=== PATIENT | male | born 1950 | race Two or more races ===

== ENCOUNTER 2023-02-04 12:29 | Inpatient (IN) | payer BC, MEDICARE ==
[2023-02-04] MEDS ORDERED: FLUMAZENIL 0.1 MG/ML 5 ML VIAL IVP STA (12:36)
[2023-02-04] MEDS ORDERED: NALOXONE 0.4 MG/ML 1 ML VIAL IVP STA (12:37)
[2023-02-04 12:48] LABS: ABG Oxygen Saturation 94.9 % (94-97); ABG PO2 95 mmHg (83-108); Allen Test Performed? Yes
[2023-02-04 12:50] LABS: Basophils # (A) 0.1 k/uL (0-0.2); Basophils % (A) 1 %; Eosinophils # (A) 0.1 k/uL (0-0.7); Eosinophils % (A) 1 %; HCT 42.5 % (39.0-53.0); HGB 12.5 gm/dL (13.0-17.5); Hypochromasia Marked; Lymphocytes # (A) 4.9 k/uL (1.0-4.8); Lymphocytes % (A) 36 %; MCHC 29.3 g/dL (31.0-37.0); MCV 91.9 fL (80.0-100.0); Mean Platelet Volume 8.3; Monocytes # (A) 0.7 k/uL (0-1.0); Monocytes % (A) 5 %; Neutrophils # (A) 7.4 k/uL (1.3-7.7); Neutrophils % (A) 55 %; Platelet Count 349 k/uL (150-450); RBC 4.63 m/uL (4.30-5.90); RDW 14.7 % (11.5-15.5); WBC 13.4 k/uL (3.8-10.6)
[2023-02-04 12:54] LABS: ABG PCO2 >120 mmHg (35-45); ABG PH 7.12 (7.35-7.45)
[2023-02-04 12:58] LABS: Partial Thromboplastin Time 23.6 sec (22.0-30.0); Prothrombin Time 10.9 sec (10.0-12.5)
--- NOTE | 2023-02-04 12:58 | ED ---
General Adult HPI - General Chief complaint: Altered Mental Status Stated complaint: afib Time Seen by Provider: 02/04/23 12:29 Source: patient, family, EMS, RN notes reviewed, old records reviewed Mode of arrival: EMS Limitations: no limitations - History of Present Illness Initial comments: this a 72-year-old male who presents emergency Department in respiratory distress and is unresponsive. According to the patient's son who is an oral surgeon patient was given a benzodiazepine this morning at 7:00 and had a procedure starting around 9:00 and he became more and more obtunded over the last hour and a half to the point where he was unresponsive and needed be back on the way in by EMS. Son stated the patient was not to be intubated unless his heart. He needed CPR. He was insistent upon no intubation. Patient has severe COPD and is on 16 L during the day and BiPAP at night. - Related Data Allergies Allergy/AdvReac Type Severity Reaction Status Date / Time No Known Allergies Allergy Verified 02/04/23 12:37 Review of Systems ROS Statement: Those systems with pertinent positive or pertinent negative responses have been documented in the HPI. ROS Other: All systems not noted in ROS Statement are negative. Past Medical History Past Medical History: Unable to Obtain Past Surgical History: Unable to Obtain Past Psychological History: Unable to Obtain Smoking Status: Unknown if ever smoked Past Alcohol Use History: Unable to Obtain Past Drug Use History: Unable to Obtain General Exam - General Exam Comments Initial Comments: GENERAL: Patient is well-developed and well-nourished. Patient is unresponsive ENT: Neck is soft and supple. Moist mucous membranes. EYES: The sclera were anicteric and conjunctiva were pink and moist. PULMONARY: There are no breath sounds and it did not appear patient was taking any breath on his own CARDIOVASCULAR: There is a regular rate and rhythm without any murmurs gallops or rubs. ABDOMEN: Soft and nontender with normal bowel sounds. SKIN: Skin is clear with no lesions or rashes and otherwise unremarkable. NEUROLOGIC: Patient is not alert MUSCULOSKELETAL: Unable to assess PSYCHIATRIC: Unable to assess Limitations: no limitations Course Vital Signs 02/04/23 02/04/23 02/04/23 12:32 12:37 12:40 Temperature 96.4 F L Pulse Rate 55 L Respiratory 8 L 8 L Rate Blood Pressure 125/85 O2 Sat by Pulse 88 L Oximetry Fraction of Inspired Oxygen (FIO2) 02/04/23 02/04/23 12:43 13:04 Temperature Pulse Rate 56 L Respiratory 29 H Rate Blood Pressure 117/72 O2 Sat by Pulse 97 Oximetry Fraction of 100 Inspired Oxygen (FIO2) Medical Decision Making - Medical Decision Making EKG is interpreted by myself. EKG shows a sinus bradycardia 55 bpm MI interval 238 QRS is 101 Q-T intervals 422 QTC is 410 per patient's EKG shows ST segment elevation V2 through V6 as well as lateral leads 1 and aVL. I compared to an old EKG these are not new changes Was pt. sent in by a medical professional or institution (, PA, KINESIOLOGIST, urgent care, hospital, or [place] health care facility...) When possible be specific @ -Patient was sent in by the dentist doing the procedure Did you speak to anyone other than the patient for history (EMS, parent, family, police, friend...)? What history was obtained from this source @ -Son gave all the history Did you review nursing and triage notes (agree or disagree)? Why? @ -I reviewed and agree with nursing and triage notes Were old charts reviewed (outside hosp., previous admission, EMS record, old EKG, old radiological studies, urgent care reports/EKG's, [place] health care facility records)? Report findings @ -I reviewed prior EKGs and prior radiological studies from [facility] that the son had access to Differential Diagnosis (chest pain, altered mental status, abdominal pain women, abdominal pain men, vaginal bleeding, weakness, fever, dyspnea, syncope, headache, dizziness, GI bleed, back pain, seizure, CVA, palpatations, mental health, musculoskeletal)? @ -Differential Dyspnea: Coronary syndrome, arrhythmia, tamponade, asthma, COPD, pulmonary embolism, pneumonia, pneumothorax, pulmonary effusion, anaphylaxis, diabetic ketoacidosis, flailed chest, pulmonary contusion, diaphragmatic rupture, anemia, neuromuscul ar, this is not meant to be an all-inclusive list. EKG interpreted by me (3pts min.). @ -As above X-rays interpreted by me (1pt min.). @ -X-ray shows large pleural effusion on the right with significant atelectasis as well as possible pulmonary edema CT interpreted by me (1pt min.). @ -None done U/S interpreted by me (1pt. min.). @ -None done What testing was considered but not performed or refused? (CT, X-rays, U/S, labs)? Why? @ -None What meds were considered but not given or refused? Why? @ -None Did you discuss the management of the patient with other professionals (professionals i.e. , PA, KINESIOLOGIST, lab, RT, psych nurse, high school social studies tutor, digital data analyst, teacher, community chest officer, rn case mgr)? Give summary @ -[facility] the patient I wrote admitting orders Was smoking cessation discussed for >3mins.? @ -No Was critical care preformed (if so, how long)? @ -35 minutes Were there social determinants of health that impacted care today? How? (Homelessness, low income, unemployed, alcoholism, drug addiction, transportation, low edu. Level, literacy, decrease access to med. care, penitentiary, rehab)? @ -No Was there de-escalation of care discussed even if they declined (Discuss DNR or withdrawal of care, Hospice)? DNR status @ -No What co-morbidities impacted this encounter? (DM, HTN, Smoking, COPD, CAD, Cancer, CVA, ARF, Chemo, Hep., AIDS, mental health diagnosis, sleep apnea, morbid obesity)? @ -None Was patient admitted / discharged? Hospital course, mention meds given and route, prescriptions, significant lab abnormalities, going to OR and other pertinent info. @ -Patient arrived and it did not appear he was breathing at all patient was being bagged this time. I spoke with the son said did not want the patient to be intubated unless his heart stopped and he needed CPR. Patient insisted that the patient could be associated with BiPAP because it has worked in the past. Patient was then placed on BiPAP keep were done patient was hypercapnic. Patient also has Romazicon to reverse any benzodiazepines around toward. Patient was given prophylactic antibiotics as well after the x-ray was viewed. A repeat ABG was done that showed a pCO2 had decreased recently [place] to the point where the patient was awake and saying things but not making sense at this time. [facility] admitted the patient. I spoke with Dr. Brito he agreed to come down and see the patient he saw the patient in the emergency department and wanted the patient to come up to the ICU. Undiagnosed new problem with uncertain prognosis? @ -No Drug Therapy requiring intensive monitoring for toxicity (Heparin, Nitro, Insulin, Cardizem)? @ -No Were any procedures done? @ -No Diagnosis/symptom? @ -Respiratory failure Acute, or Chronic, or Acute on Chronic? @ -Acute Uncomplicated (without systemic symptoms) or Complicated (systemic symptoms)? @ -Complicated Side effects of treatment? @ -No Exacerbation, Progression, or Severe Exacerbation? @ -No Poses a threat to life or bodily function? How? (Chest pain, [place], [place], pneumonia, PE, COPD, DKA, ARF, appy, cholecystitis, CVA, Diverticulitis, Homicidal, Suicidal, threat to staff... and all critical care pts) @ -Yes extremely the hypoxia and end organ dysfunction Diagnosis/symptom? @ -Hypercapnia Acute, or Chronic, or Acute on Chronic? @ -Acute Uncomplicated (without systemic symptoms) or Complicated (systemic symptoms)? @ -Complicated Side effects of treatment? @ -none Exacerbation, Progression, or Severe Exacerbation] @ -no Poses a threat to life or bodily function? @ -Yes - Lab Data Result diagrams: 02/04/23 12:40 02/04/23 12:40 Lab Results 02/04/23 02/04/23 02/04/23 Range/Units 12:40 12:40 12:40 WBC 13.4 H (3.8-10.6) k/uL RBC 4.63 (4.30-5.90) m/uL Hgb 12.5 L (13.0-17.5) gm/dL Hct 42.5 (39.0-53.0) % MCV 91.9 (80.0-100.0) fL MCH 27.0 (25.0-35.0) pg MCHC 29.3 L (31.0-37.0) g/dL RDW 14.7 (11.5-15.5) % Plt Count 349 (150-450) k/uL MPV 8.3 Neutrophils % 55 % Lymphocytes % 36 % Monocytes % 5 % Eosinophils % 1 % Basophils % 1 % Neutrophils # 7.4 (1.3-7.7) k/uL Lymphocytes # 4.9 H (1.0-4.8) k/uL Monocytes # 0.7 (0-1.0) k/uL Eosinophils # 0.1 (0-0.7) k/uL Basophils # 0.1 (0-0.2) k/uL Hypochromasia Marked PT 10.9 (10.0-12.5) sec INR 1.0 (<1.2) APTT 23.6 (22.0-30.0) sec Sample Site ABG pH (7.35-7.45) ABG pCO2 (35-45) mmHg ABG pO2 (83-108) mmHg ABG HCO3 (21-25) mmol/L ABG Total CO2 (19-24) mmol/L ABG O2 Saturation (94-97) % ABG Base Excess mmol/L Nuno Test FiO2 % Sodium 140 (137-145) mmol/L Potassium 5.6 H (3.5-5.1) mmol/L Chloride 92 L (98-107) mmol/L Carbon Dioxide 40 H (22-30) mmol/L Anion Gap 8 mmol/L BUN 27 H (9-20) mg/dL Creatinine 0.78 (0.66-1.25) mg/dL Est GFR (CKD-EPI)AfAm >90 (>60 ml/min/1.73 sqM) Est GFR (CKD-EPI)NonAf >90 (>60 ml/min/1.73 sqM) Glucose 192 H (74-99) mg/dL Plasma Lactic Acid Billy (0.7-2.0) mmol/L Calcium 9.4 (8.4-10.2) mg/dL Magnesium 2.0 (1.6-2.3) mg/dL Total Bilirubin 0.6 (0.2-1.3) mg/dL AST 29 (17-59) U/L ALT 16 (4-49) U/L Alkaline Phosphatase 60 (38-126) U/L Troponin I (0.000-0.034) ng/mL NT-Pro-B Natriuret Pep 744 pg/mL Total Protein 7.0 (6.3-8.2) g/dL Albumin 3.5 (3.5-5.0) g/dL 02/04/23 02/04/23 02/04/23 Range/Units 12:40 12:40 12:45 WBC (3.8-10.6) k/uL RBC (4.30-5.90) m/uL Hgb (13.0-17.5) gm/dL Hct (39.0-53.0) % MCV (80.0-100.0) fL MCH (25.0-35.0) pg MCHC (31.0-37.0) g/dL RDW (11.5-15.5) % Plt Count (150-450) k/uL MPV Neutrophils % % Lymphocytes % % Monocytes % % Eosinophils % % Basophils % % Neutrophils # (1.3-7.7) k/uL Lymphocytes # (1.0-4.8) k/uL Monocytes # (0-1.0) k/uL Eosinophils # (0-0.7) k/uL Basophils # (0-0.2) k/uL Hypochromasia PT (10.0-12.5) sec INR (<1.2) APTT (22.0-30.0) sec Sample Site RRAD ABG pH 7.12 L* (7.35-7.45) ABG pCO2 >120 H* (35-45) mmHg ABG pO2 95 (83-108) mmHg ABG HCO3 0 L* (21-25) mmol/L ABG Total CO2 0 L (19-24) mmol/L ABG O2 Saturation 94.9 (94-97) % ABG Base Excess 0.0 mmol/L Nuno Test Yes FiO2 100 % Sodium (137-145) mmol/L Potassium (3.5-5.1) mmol/L Chloride (98-107) mmol/L Carbon Dioxide (22-30) mmol/L Anion Gap mmol/L BUN (9-20) mg/dL Creatinine (0.66-1.25) mg/dL Est GFR (CKD-EPI)AfAm (>60 ml/min/1.73 sqM) Est GFR (CKD-EPI)NonAf (>60 ml/min/1.73 sqM) Glucose (74-99) mg/dL Plasma Lactic Acid Billy 0.8 (0.7-2.0) mmol/L Calcium (8.4-10.2) mg/dL Magnesium (1.6-2.3) mg/dL Total Bilirubin (0.2-1.3) mg/dL AST (17-59) U/L ALT (4-49) U/L Alkaline Phosphatase (38-126) U/L Troponin I <0.012 (0.000-0.034) ng/mL NT-Pro-B Natriuret Pep pg/mL Total Protein (6.3-8.2) g/dL Albumin (3.5-5.0) g/dL 02/04/23 Range/Units 13:47 WBC (3.8-10.6) k/uL RBC (4.30-5.90) m/uL Hgb (13.0-17.5) gm/dL Hct (39.0-53.0) % MCV (80.0-100.0) fL MCH (25.0-35.0) pg MCHC (31.0-37.0) g/dL RDW (11.5-15.5) % Plt Count (150-450) k/uL MPV Neutrophils % % Lymphocytes % % Monocytes % % Eosinophils % % Basophils % % Neutrophils # (1.3-7.7) k/uL Lymphocytes # (1.0-4.8) k/uL Monocytes # (0-1.0) k/uL Eosinophils # (0-0.7) k/uL Basophils # (0-0.2) k/uL Hypochromasia PT (10.0-12.5) sec INR (<1.2) APTT (22.0-30.0) sec Sample Site RRAD ABG pH 7.24 L (7.35-7.45) ABG pCO2 102 H* (35-45) mmHg ABG pO2 72 L (83-108) mmHg ABG HCO3 43 H* (21-25) mmol/L ABG Total CO2 47 H (19-24) mmol/L ABG O2 Saturation 92.6 L (94-97) % ABG Base Excess 15.8 mmol/L Nuno Test Yes FiO2 100 % Sodium (137-145) mmol/L Potassium (3.5-5.1) mmol/L Chloride (98-107) mmol/L Carbon Dioxide (22-30) mmol/L Anion Gap mmol/L BUN (9-20) mg/dL Creatinine (0.66-1.25) mg/dL Est GFR (CKD-EPI)AfAm (>60 ml/min/1.73 sqM) Est GFR (CKD-EPI)NonAf (>60 ml/min/1.73 sqM) Glucose (74-99) mg/dL Plasma Lactic Acid Billy (0.7-2.0) mmol/L Calcium (8.4-10.2) mg/dL Magnesium (1.6-2.3) mg/dL Total Bilirubin (0.2-1.3) mg/dL AST (17-59) U/L ALT (4-49) U/L Alkaline Phosphatase (38-126) U/L Troponin I (0.000-0.034) ng/mL NT-Pro-B Natriuret Pep pg/mL Total Protein (6.3-8.2) g/dL Albumin (3.5-5.0) g/dL Critical Care Time Critical Care Time: Yes Total Critical Care Time: 35 Disposition Clinical Impression: Respiratory failure, Hypercapnia Disposition: ADMITTED IP TO THIS HOSP Referrals: None,Stated [Primary Care Provider] - 1-2 days Time of Disposition: 14:36
[2023-02-04 12:59] LABS: Potassium 5.6 mmol/L (3.5-5.1)
[2023-02-04 13:00] LABS: ABG HCO3 0 mmol/L (21-25)
[2023-02-04 13:00] LABS: ALT 16 U/L (4-49); AST 29 U/L (17-59); African American GFR (CKD) >90 (>60 ml/min/1.73 sqM); Albumin 3.5 g/dL (3.5-5.0); Alkaline Phosphatase 60 U/L (38-126); Anion Gap 8 mmol/L; Blood Urea Nitrogen 27 mg/dL (9-20); Calcium 9.4 mg/dL (8.4-10.2); Chloride 92 mmol/L (98-107); Glucose 192 mg/dL (74-99); Non-African American GFR(CKD) >90 (>60 ml/min/1.73 sqM); Sodium 140 mmol/L (137-145); Total Bilirubin 0.6 mg/dL (0.2-1.3)
[2023-02-04 13:01] LABS: ABG TCO2 0 mmol/L (19-24)
[2023-02-04] MEDS ORDERED: cefTRIAXone IN SWFI 1,000 MG/10 ML SYRINGE IVP STA (13:02)
[2023-02-04 13:07] LABS: NT-Pro-B-Type Natriuretic Pept 744 pg/mL
--- NOTE | 2023-02-04 13:15 | XR ---
EXAMINATION TYPE: XR chest 1V portable DATE OF EXAM: 02/04/2023 12:49 PM CLINICAL INDICATION:Male, 72 years old with history of Respiratory distress; [facility] COMPARISON: None TECHNIQUE: XR chest 1V portable Frontal view of the chest. FINDINGS: Lungs/Pleura: Near complete opacification of the right thorax. Diffuse airspace opacities suggestive of pulmonary edema. No evidence for pneumothorax. No left pleural effusion definitively visualized. Pulmonary vascularity: Unremarkable. Heart/mediastinum: Cardiomediastinal silhouette is partially obscured due to overlying and adjacent o pacities. Atherosclerotic calcifications are seen in the aorta. Musculoskeletal: No acute osseous pathology. Bilateral shoulder arthroplasties appear intact. Other findings: None IMPRESSION: Suspected large right pleural effusion with associated atelectasis. There is also suspected pulmonary vascular congestion superimposed versus chronic fibrotic change. Correlate with serum BNP.
[2023-02-04 13:18] LABS: Carbon Dioxide 40 mmol/L (22-30)
[2023-02-04 13:51] LABS: ABG Base Excess 15.8 mmol/L; ABG Oxygen Saturation 92.6 % (94-97); ABG PH 7.24 (7.35-7.45); ABG PO2 72 mmHg (83-108); ABG TCO2 47 mmol/L (19-24); Allen Test Performed? Yes
[2023-02-04 13:52] LABS: ABG PCO2 102 mmHg (35-45)
[2023-02-04 13:53] LABS: ABG HCO3 43 mmol/L (21-25)
[2023-02-04] MEDS ORDERED: methylPREDNISolone SOD SUCCI 125 MG/2 ML VIAL IV STA (14:12)
[2023-02-04] MEDS ORDERED: FUROSEMIDE 10 MG/ML 4 ML VIAL IV STA ×2 (14:13→14:14)
[2023-02-04] MEDS ORDERED: BUDESONIDE 0.5 MG/2 ML NEBU INHALATION STA (14:19)
--- NOTE | 2023-02-04 14:28 | P.CRDCN ---
History of Present Illness History of present illness: HISTORY OF PRESENT ILLNESS: This is a 72-year-old male with a past medical history significant for paroxysmal atrial fibrillation with previous cardioversion and chronic hypercapnic respiratory failure requiring BiPAP at night. Patient follows with a Dr. Alvarado at [facility]. We have been asked to see the patient in consultation for ST elevation. Patient examined at the bedside in the emergency room. The patient's son is at the bedside who is an oral maxillofacial surgeon. The patient was undergoing multiple tooth extractions this morning. The son states states this morning they gave the patient an oral benzodiazepine. The son states they were about 2 and half hours into the procedure when his father became obtunded. He was brought to the hospital for further evaluation. ABGs obtained revealed pH 7.12 and CO2 greater than 120. The patient's son states the patient's baseline CO2 is around 80. He also wears a BiPAP nightly at home. The patient was placed on BiPAP as the family refused intubation. The patient is awake and talking at the time of examination. The patient is without complaints of chest pain or pressure. The patient's son states the patient does not have a history of congestive heart failure, coronary artery disease, or cardiomyopathy. * EKG reveals sinus mechanism with ST elevation in lead I, II, aVL, V3V6. Prior EKG provided by family with same ST elevations. * Chest xray suspected large right pleural effusion with associated atelectasis. There is also suspected pulmonary vascular congestion superimposed versus chronic fibrotic changes. REVIEW OF SYSTEMS: At the time of my exam: CONSTITUTIONAL: Denies fever or chills. HEENT: Denies blurred vision, vision changes, or eye pain. Denies hemoptysis CARDIOVASCULAR: Denies chest pain. Denies orthopnea. Denies PND. Denies palp itations RESPIRATORY: Reports shortness of breath. GASTROINTESTINAL: Denies abdominal pain. Denies nausea or vomiting. HEMATOLOGIC: Denies bleeding disorders. GENITOURINARY: Denies any blood in urine. SKIN: Denies pruitis. Denies rash. PHYSICAL EXAM: VITAL SIGNS: Reviewed. GENERAL: Well-developed in no acute distress. Remains on Bipap HEENT: Head is normocephalic. Pupils are equal, round. Sclerae anicteric. Mucous membranes of the mouth are moist. Neck supple. No JVD or thyromegaly LUNGS: Respirations even and unlabored. Lungs diminished to auscultation bilaterally. HEART: Regular rate and rhythm. S1 and S2 heard. ABDOMEN: Soft. Nondistended. Nontender. EXTREMITIES: Normal range of motion. No clubbing or cyanosis. Peripheral pulses intact. No lower extremity edema NEUROLOGIC: Awake and alert. Oriented x 3. ASSESSMENT: Episode of unresponsiveness while undergoing dental procedure Chronic ST elevation Acute hypercapnic respiratory failure requiring BiPAP Chronic hypercapnic respiratory failure, requiring BiPAP nightly at home Paroxysmal atrial fibrillation History of previous cardioversion History of PEA arrest with intubation, earlier this year at [place] PLAN: Resume Multaq and Metoprolol Resume Eliquis tomorrow Continue telemetry monitoring Per Dr. Castillo, patient with chronic ST elevation with no indication to undergo cardiac catheterization. Patients family wishing to discharge the patient this evening once his CO2 decreases and his mentation improves Patient may be discharged home from a cardiac standpoint this evening per Dr. Castillo Further recommendations pending patient's course Nurse practitioner note has been reviewed by physician. Signing provider agrees with the documented findings, assessment, and plan of care. Past Medical History Past Medical History: Unable to Obtain Past Surgical History: Unable to Obtain Past Psychological History: Unable to Obtain Smoking Status: Unknown if ever smoked Past Alcohol Use History: Unable to Obtain Past Drug Use History: Unable to Obtain Medications and Allergies Allergies Allergy/AdvReac Type Severity Reaction Status Date / Time No Known Allergies Allergy Verified 02/04/23 12:37 Physical Exam Vitals: Vital Signs Temp Pulse Resp BP Pulse Ox FiO2 02/04/23 13:04 100 02/04/23 12:43 56 L 29 H 117/72 97 02/04/23 12:40 96.4 F L 02/04/23 12:37 8 L 02/04/23 12:32 55 L 8 L 125/85 88 L Intake and Output 02/03/23 02/04/23 02/04/23 22:59 06:59 14:59 Other: Weight 72.575 kg Results 02/04/23 12:40 02/04/23 12:40 Cardiac Enzymes 02/04/23 02/04/23 Range/Units 12:40 12:40 AST 29 (17-59) U/L Troponin I <0.012 (0.000-0.034) ng/mL Coagulation 02/04/23 Range/Units 12:40 PT 10.9 (10.0-12.5) sec APTT 23.6 (22.0-30.0) sec CBC 02/04/23 Range/Units 12:40 WBC 13.4 H (3.8-10.6) k/uL RBC 4.63 (4.30-5.90) m/uL Hgb 12.5 L (13.0-17.5) gm/dL Hct 42.5 (39.0-53.0) % Plt Count 349 (150-450) k/uL Comprehensive Metabolic Panel 02/04/23 Range/Units 12:40 Sodium 140 (137-145) mmol/L Potassium 5.6 H (3.5-5.1) mmol/L Chloride 92 L (98-107) mmol/L Carbon Dioxide 40 H (22-30) mmol/L BUN 27 H (9-20) mg/dL Creatinine 0.78 (0.66-1.25) mg/dL Glucose 192 H (74-99) mg/dL Calcium 9.4 (8.4-10.2) mg/dL AST 29 (17-59) U/L ALT 16 (4-49) U/L Alkaline Phosphatase 60 (38-126) U/L Total Protein 7.0 (6.3-8.2) g/dL Albumin 3.5 (3.5-5.0) g/dL Current Medications Generic Name Dose Route Start Last Admin Trade Name Freq PRN Reason Stop Dose Admin Albuterol/Ipratropium 3 ml 02/04/23 20:00 Ipratropium-Albuterol 3 Ml Neb INHALATION RT-Q6H OSIRIS Ampicillin Sodium/Sulbactam 100 mls @ 200 mls/hr 02/04/23 14:17 Sodium 3 gm/ Sodium Chloride IVPB 02/04/23 14:46 ONCE STA Protocol Ampicillin Sodium/Sulbactam 100 mls @ 200 mls/hr 02/04/23 18:00 Sodium 3 gm/ Sodium Chloride IVPB Q6HR OSIRIS Protocol Ketorolac Tromethamine 15 mg 02/04/23 14:13 Ketorolac 15 Mg/Ml 1 Ml Vial IVP 02/09/23 14:13 Q6HR PRN Pain Intake and Output 02/03/23 02/04/23 02/04/23 22:59 06:59 14:59 Other: Weight 72.575 kg Patient Weight 02/05/23 06:59 Weight 72.575 kg 02/04/23 12:40 02/04/23 12:40
[2023-02-04] MEDS: AMPICILLIN-SULBACTAM 3 GM in SODIUM CHLORIDE 0.9% 100 ML IVPB STA ×2 (14:31→17:30)
[2023-02-04] MEDS: KETOROLAC 15 MG/ML 1 ML VIAL IVP PRN ×2 (14:32→23:39)
[2023-02-04] MEDS ORDERED: NALOXONE 0.4 MG/ML 1 ML VIAL IV PRN (14:36)
--- NOTE | 2023-02-04 15:06 | P.CNPUL ---
History of Present Illness Consult date: 02/04/23 Reason for consult: COPD History of present illness: I was asked to evaluate this 72 year-old male patient for acute respiratory distress. This is a male patient who lives in [facility] the patient has extensive medical problems and comorbidities most significant of which is non-small cell lung cancer/adenocarcinoma, stage IIIB. The patient was in the area with his son was Is to be a maxillofacial surgery trainee who is currently training add the [facility] [employer] [facility] [facility] [place]. The patient was undergoing a dental extraction and the procedure was being performed by the son at his friend's office. 2 hours into the procedure, the patient became progressively more obtunded, lethargic, and quite encephalopathic and he was in significant is to distress. At that point, the procedure was aborted and the patient was brought into the emergency department. The patient was being bagged by mask ventilation on Route. The patient was given Halcion at the time of the procedure. No reported aspiration. He did encounter some bleeding from the gums yet, the son mentions that there is no reported massive aspiration or aspirate thin episode. Immediately, in the emergency department, the patient was placed on a BiPAP and the patient is currently on a BiPAP pressure of 24/7 cm of water with an FiO2 of 100%. Is able to generate tidal volumes above 400. He is tachypneic. Respiratory rate is in the mid 30s to low 40s. Initially was quite obtunded and lethargic and gradually he started recovering his mentation and mental status and at this point in time the patient is opening his eyes spontaneously and following simple commands. His initial blood gas showed a pH of 7.12 with a pCO2 of more than 120 and pO2 of 95. Subsequent blood gas showed a pH of 7.23 with a pCO2 of 102 and pO2 of 71. Noted the patient usually lives in a pCO2 in the mid 80s. His maintain on oxygen somewhat between 5-8 L nasal cannula. In terms of his history, the patient has encountered the previous ARDS back in 2016. Exact cause for the ARDS at that time was not known. The patient was intubated and placed on a mechanical ventilator for prolonged period of time and ultimately he developed some post ARDS scarring in the lungs bilaterally. Subsequently, while undergoing shoulder surgery, the patient had a hospital- acquired pneumonia and the patient had to be intubated and placed on the mechanical ventilation again for prolonged period of time. For now, the patient undergone bilateral shoulder replacement. During the course of his illness, the patient was diagnosed having stage IIIB non-small cell lung cancer/adenocarcinoma. He was treated with accommodation of chemoradiation therapy. History no was up by Dr. Bautista at [facility]. The patient was treated with [place] ira based regimen and following that the patient was given a total of 2 years of immunotherapy with Keytruda. The patient apparently did very well. His follow-up CTs showed no significant metabolic activity within the mediastinum and the patient had some chronic opacity in the right upper lobe and this was attributed to radiation-related scarring. He also developed a located right-sided pleural effusion. His undergone multiple drainage procedures of the pleural fluid on the right in the pleural fluid cytology has been negative for malignancy. I was able to review his most recent CAT scan of the chest that was done on 01/18/2023 through the [facility] system. The patient has chronic bilateral fibrotic changes and there is a loculated right basilar pleural effusion. Chronic scarlike nodular opacity in the right upper lobe and there is volume loss in the right upper lobe along with some mediastinal switch to the right. No active masses or lesions. No significant mediastinal lymphadenopathy. In addition, the patient was recently hospitalized for A. fib RVR and decompensated COPD and this admission was at [facility]. The patient was not intubated during that admission. He was treated with BiPAP and he was able to avoid intubation. In terms of his atrial fibrillation, the patient was treated with a combination of beta blockers and currently is on metoprolol and multiple back. The patient is also on anticoagulation with Eliquis. In terms of his COPD, Stiolto 2 puffs once a day, Xopenex as needed and the patient prefers Xopenex over albuterol as albuterol causes significant tachycardia. The patient has been also maintained on a prednisone dose of 10 mg on a daily basis. He is known to have hypothyroidism maintain on levothyroxine 50 g by mouth daily. Is also maintained on tamsulosin for BPH and this medication was discontinued as it was causing some degree of hypotension. Currently is on no immunotherapy. Recurrent left-sided WBC count 15.4, hemoglobin is 12.7 and a platelet count of 349. Sodium is at 140, potassium is 5.6, BUN is 27 with a creatinine 0.7. Troponins are negative. ProBNP level is 744. Chest x-ray showed a loculated right basilar pleural effusion. Volume loss on the right. Chronic fibrotic changes bilaterally with chronic interstitial infiltrates. This superimposed interstitial edema/pulmonary vessel congestion/pulmonary edema cannot be completely ruled out Note that the patient was taken off his anticoagulants for the dental procedure. No previous history of DVT or pulmonary embolism. Minimal amount of bleeding from his gum due to his recent dental extraction. Review of Systems ROS unobtainable: due to mental status Past Medical History Past Medical History: Atrial Fibrillation, Cancer (Adenocarcinoma of the lung stage III B), COPD, Prostate Disorder Past Surgical History: Unable to Obtain, Orthopedic Surgery (Bilateral shoulder replacements) Past Psychological History: Unable to Obtain Smoking Status: Former smoker, Unknown if ever smoked Past Alcohol Use History: Unable to Obtain Past Drug Use History: Unable to Obtain Medications and Allergies Allergies Allergy/AdvReac Type Severity Reaction Status Date / Time No Known Allergies Allergy Verified 02/04/23 12:37 Physical Exam Vitals: Vital Signs Temp Pulse Resp BP Pulse Ox FiO2 02/04/23 13:04 100 02/04/23 12:43 56 L 29 H 117/72 97 02/04/23 12:40 96.4 F L 02/04/23 12:37 8 L 02/04/23 12:32 55 L 8 L 125/85 88 L Intake and Output 02/03/23 02/04/23 02/04/23 22:59 06:59 14:59 Other: Weight 72.575 kg Gen. appearance, the patient is quite apprehensive, anxious, and moderate degree of respiratory distress. He is using some Excedrin with her breathing while being on a BiPAP at a pressure of 24/7 cm of water with an FiO2 of 100%. Head exam was generally normal. There was no scleral icterus or corneal arcus. Mucous membranes were moist. Neck was supple and without jugular venous distension, thyromegaly, or carotid bruits. Carotids were easily palpable bilaterally. There was no adenopathy. The patient has dental extraction and signs of postsurgical intervention on his gums both in the upper and lower jaw. No active bleeding at this point in time. Lungs sounds are markedly diminished bilaterally. There is diffuse expiratory wheezes throughout the lung [place]. Crackles in the mid and lower lung field bilaterally. Air entry is diminished in the right compared to the left. Cardiac exam revealed the PMI to be normally situated and sized. The rhythm was regular and no extrasystoles were noted during several minutes of auscultation. The first and second heart sounds were normal and physiologic splitting of the second heart sound was noted. There were no murmurs, rubs, clicks, or gallops. Abdominal exam revealed normal bowel sounds. The abdomen was soft, non-tender, and without masses, organomegaly, or appreciable enlargement of the abdominal aorta. Examination of the extremities revealed easily palpable radial, femoral and pedal pulses. There was no cyanosis, clubbing or edema. Examination of the skin revealed no evidence of significant rashes, suspicious appearing nevi or other concerning lesions. Neurologically the patient was very much obtunded at time of admission, currently arousable and following some simple commands. Family is at the bedside. Results - Laboratory Findings CBC and BMP: 02/04/23 12:40 02/04/23 12:40 ABG ABG pH 7.24 (7.35-7.45) L 02/04/23 13:47 ABG pCO2 102 mmHg (35-45) H* 02/04/23 13:47 ABG pO2 72 mmHg (83-108) L 02/04/23 13:47 ABG O2 Saturation 92.6 % (94-97) L 02/04/23 13:47 PT/INR, D-dimer PT 10.9 sec (10.0-12.5) 02/04/23 12:40 INR 1.0 (<1.2) 02/04/23 12:40 Abnormal lab findings: Abnormal Labs 02/04/23 02/04/23 02/04/23 12:40 12:40 12:45 WBC 13.4 H Hgb 12.5 L MCHC 29.3 L Lymphocytes # 4.9 H ABG pH 7.12 L* ABG pCO2 >120 H* ABG pO2 ABG HCO3 0 L* ABG Total CO2 0 L ABG O2 Saturation Potassium 5.6 H Chloride 92 L Carbon Dioxide 40 H BUN 27 H Glucose 192 H 02/04/23 13:47 WBC Hgb MCHC Lymphocytes # ABG pH 7.24 L ABG pCO2 102 H* ABG pO2 72 L ABG HCO3 43 H* ABG Total CO2 47 H ABG O2 Saturation 92.6 L Potassium Chloride Carbon Dioxide BUN Glucose - Diagnostic Findings Chest x-ray: image reviewed Assessment and Plan Plan: Acute on chronic hypoxic/hypercapnic respiratory failure, likely due to COPD exacerbation. Underlying aspiration pneumonia/pulmonary edema/interstitial edema cannot be completely ruled out. The patient is currently on a BiPAP at a pressure of 24/7 with an FiO2 of 100%. Follow-up blood gases showed improvement in the acid-base status Altered mental status secondary to CO2 narcosis due to acute on top of chronic hypercapnic respiratory failure, gradually improving Advanced oxygen-dependent COPD and steroid dependent COPD, maintain oxygen at 5 L at baseline, maintained on oral prednisone at baseline. The patient also has a AVAPS machine at home, encouraged ventilator which is set at a time. Tidal volume of 350 mL. 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 fib, current rhythm is sinus and the patient has limited on a combination of multi-, metoprolol and anticoagulation with Eliquis Previous history of hospital-acquired pneumonia requiring intubation mechanical ventilation Previous history of ARDS requiring intubation mechanical ventilation Previous hospitalization for A. fib RVR, back in July 2022. Recent dental extraction done locally in a dental office. The son is a maxi llofacial surgeon and he was the one who was performing the procedure Hypertension BPH Hypothyroidism Plan The patient is critically ill. The patient's respiratory status is very borderline at this point in time. I elected discussion with the family at the bedside. We decided not to intubate the patient. We decided to proceed with BiPAP therapy to optimize his respiratory status knowing that this intervention has been utilizing the past with success. As such, we will going continue the BiPAP treatment for now. There has been some limited improvement with Estrace acidosis based on the follow blood gases. Start the patient on DuoNeb neb blotchiness 4 times a day Continue budesonide updrafts twice a day IV Solu Medrol 60 mg every 6 hours Lasix 40 mg IV push given in emergency department We'll cover the patient with IV Unasyn We'll already anticoagulation for 24 hours and restart adequate as of tomorrow Give Toradol 15 mg every 6 hours for pain control as the patient is having pain in his gums. Would avoid narcotic medications due to his respiratory status IV Protonix Heparin subcu for DVT prophylaxis Resume thyroid medications, the patient is on Synthroid Resume Multaq We will hold beta blockers for now and monitor the heart rate The patient will be admitted to the intensive care unit and will continue to follow and make further recommendations based on his progress. This evaluation was done in more than one hour. The patient was seen in the emergency department. Condition is critical. High risk for requiring intubation mechanical ventilation. Time with Patient: Greater than 30
--- NOTE | 2023-02-04 16:00 | XR ---
EXAMINATION TYPE: XR chest 1V DATE OF EXAM: 02/04/2023 3:55 PM CLINICAL INDICATION:Male, 72 years old with history of copd; [facility] COMPARISON: Chest radiographs from same day TECHNIQUE: XR chest 1V Frontal view of the chest. FINDINGS: Lungs/Pleura: Ariella of the bilateral costophrenic angles compatible with pleural effusions with assoc iated atelectasis. There is no evidence of focal consolidation or pneumothorax. Pulmonary vascularity: Unremarkable. Heart/mediastinum: Cardiomediastinal silhouette is enlarged and stable. Musculoskeletal: No acute osseous pathology. Bilateral shoulder arthroplasty changes with hardware in tact. IMPRESSION: Improved aeration of the right lung with persistent multifocal airspace opacities. No evidence for pn eumothorax. Correlate for serum BNP for congestive heart failure.
[2023-02-04 17:22] LABS: Glucose,Whole Blood 111 mg/dL (70-110)
[2023-02-04 17:39] LABS: ABG Base Excess 15.2 mmol/L; ABG Oxygen Saturation 99.1 % (94-97); ABG PH 7.28 (7.35-7.45); ABG PO2 200 mmHg (83-108); ABG TCO2 45 mmol/L (19-24); Allen Test Performed? Yes
[2023-02-04 17:42] LABS: ABG HCO3 42 mmol/L (21-25); ABG PCO2 90 mmHg (35-45)
[2023-02-04] MEDS ORDERED: SODIUM CHLORIDE 0.9% 500 ML 500 ML IV ONE ×2 (17:42→22:59)
[2023-02-04] MEDS: HEPARIN SODIUM,PORCINE 5,000 UNIT/ML 1 ML VIAL SQ SCH ×2 (17:54→23:38)
[2023-02-04] MEDS: methylPREDNISolone SOD SUCCI 125 MG/2 ML VIAL IV SCH ×2 (17:54→23:38)
[2023-02-04] MEDS: SODIUM CHLORIDE 0.9% 1,000 ML IV SCH (19:38)
[2023-02-04] MEDS: DRONEDARONE 400 MG TAB PO SCH ×2 (19:38→20:15)
[2023-02-04] MEDS: AMPICILLIN-SULBACTAM 3 GM in SODIUM CHLORIDE 0.9% 100 ML IVPB SCH (20:15)
[2023-02-04 20:57] LABS: ABG Base Excess 14.2 mmol/L; ABG Oxygen Saturation 96.7 % (94-97); ABG PH 7.34 (7.35-7.45); ABG PO2 90 mmHg (83-108); ABG TCO2 42 mmol/L (19-24); Allen Test Performed? Yes
[2023-02-04 20:59] LABS: ABG HCO3 40 mmol/L (21-25); ABG PCO2 74 mmHg (35-45)
[2023-02-04] MEDS: IPRATROPIUM-ALBUTEROL 3 ML NEB INHALATION SCH (21:01)
[2023-02-04] MEDS: METOPROLOL TARTRATE 25 MG TAB PO SCH (21:33)
[2023-02-04] MEDS ORDERED: METOPROLOL SUCCINATE (ER) 25 MG TAB.ER.24H PO STA (22:10)
--- NOTE | 2023-02-04 22:17 | P.HPIM ---
History of Present Illness This is a pleasant 72 years old male with multiple medical problems include Atrial Fibrillation, Cancer (Adenocarcinoma of the lung stage III B), COPD, BPH Of worsening dyspnea. Today he wants to his oral surgeon which is a family member and his son for tooth extraction and he received benzodiazepine, this is followed by worsening of his respiratory status is significantly and now he presents with respiratory distress. He was converted to keep neck and tachycardic and hypotensive. Family discussed the case with pulmonary team and decided not to intubate the patient treated with BiPAP Present that patient cannot provide information Bedside WBCs 13.4 Patient has initial chest x-ray repeat chest x-ray showing improvement ir rigation with multifocal infiltrate Normal sinus rhythm at 66 with a repolarization which is chronic Review of Systems ROS unobtainable: due to mental status Past Medical History Past Medical History: Atrial Fibrillation, Cancer (Adenocarcinoma of the lung stage III B), COPD, Prostate Disorder Past Surgical History: Unable to Obtain, Orthopedic Surgery (Bilateral shoulder replacements) Past Psychological History: Unable to Obtain Smoking Status: Former smoker, Unknown if ever smoked Past Alcohol Use History: Unable to Obtain Past Drug Use History: Unable to Obtain Medications and Allergies Home Medications Medication Instructions Recorded Confirmed Type Apixaban [Eliquis] 5 mg PO BID 02/04/23 02/04/23 History Dronedarone HCl [Multaq] 400 mg PO BID 02/04/23 02/04/23 History Furosemide [Lasix] 20 mg PO DAILY PRN 02/04/23 02/04/23 History Megestrol [Megace] 40 mg PO BID 02/04/23 02/04/23 History Metoprolol Succinate [Toprol XL] 75 mg PO BID 02/04/23 02/04/23 History Allergies Allergy/AdvReac Type Severity Reaction Status Date / Time No Known Allergies Allergy Verified 02/04/23 12:37 Physical Exam Vitals: Vital Signs Temp Pulse Resp BP Pulse Ox FiO2 02/04/23 16:00 100 02/04/23 15:37 57 L 34 H 109/61 98 02/04/23 13:04 100 02/04/23 12:43 56 L 29 H 117/72 97 02/04/23 12:40 96.4 F L 02/04/23 12:37 8 L 02/04/23 12:32 55 L 8 L 125/85 88 L Intake and Output 02/04/23 02/04/23 02/04/23 06:59 14:59 22:59 Other: Weight 72.575 kg -GENERAL: The patient is obtuneded, while on bipap machine, in sever acute resp distress. Well developed, well nourished. -HEENT: Pupils are round and equally reacting to light. EOMI. No scleral icterus. No conjunctival pallor. Normocephalic, atraumatic. No pharyngeal erythema. No thyromegaly. Mildly bleeding gum which is stopped bleeding now CARDIOVASCULAR: S1 and S2 present. No murmurs, rubs, or gallops. -PULMONARY: bilateral wheezing and decreased air entry on both sides ABDOMEN: Soft, nontender, nondistended, normoactive bowel sounds. No palpable organomegaly. MUSCULOSKELETAL: No joint swelling or deformity. EXTREMITIES: No cyanosis, clubbing, or pedal edema. NEUROLOGICAL: Gross neurological examination did not reveal any focal deficits. SKIN: No rashes. no petechiae. Results CBC & Chem 7: 02/04/23 12:40 02/04/23 12:40 Labs: Abnormal Lab Results - Last 24 Hours (Table) 02/04/23 02/04/23 02/04/23 Range/Units 12:40 12:40 12:45 WBC 13.4 H (3.8-10.6) k/uL Hgb 12.5 L (13.0-17.5) gm/dL MCHC 29.3 L (31.0-37.0) g/dL Lymphocytes # 4.9 H (1.0-4.8) k/uL ABG pH 7.12 L* (7.35-7.45) ABG pCO2 >120 H* (35-45) mmHg ABG pO2 (83-108) mmHg ABG HCO3 0 L* (21-25) mmol/L ABG Total CO2 0 L (19-24) mmol/L ABG O2 Saturation (94-97) % Potassium 5.6 H (3.5-5.1) mmol/L Chloride 92 L (98-107) mmol/L Carbon Dioxide 40 H (22-30) mmol/L BUN 27 H (9-20) mg/dL Glucose 192 H (74-99) mg/dL 02/04/23 Range/Units 13:47 WBC (3.8-10.6) k/uL Hgb (13.0-17.5) gm/dL MCHC (31.0-37.0) g/dL Lymphocytes # (1.0-4.8) k/uL ABG pH 7.24 L (7.35-7.45) ABG pCO2 102 H* (35-45) mmHg ABG pO2 72 L (83-108) mmHg ABG HCO3 43 H* (21-25) mmol/L ABG Total CO2 47 H (19-24) mmol/L ABG O2 Saturation 92.6 L (94-97) % Potassium (3.5-5.1) mmol/L Chloride (98-107) mmol/L Carbon Dioxide (22-30) mmol/L BUN (9-20) mg/dL Glucose (74-99) mg/dL Assessment and Plan Assessment: Respiratory failure Acute COPD exacerbation Cannot rule out postobstructive pneumonia Acute hypoxic hypercapnic respiratory failure Acute respiratory and metabolic acidosis Metabolic encephalopathy Chronic atrial fibrillation on blood thinner Eliquis Adenocarcinoma of the lung stage III History of benign prostatic hypertrophy Plan: New with Unasyn Continue with IV Solu-Medrol Continue with Unasyn Patient is an normal saline 75 mL/h by tube knitter Continue with Eliquis cardiology and pulmonary consult Continue with BiPAP, no intubation per family discussion with the pulmonary team Labs and medication were reviewed.. Continue same treatment. Continue with symptomatic treatment. Resume home medication. Monitor labs and vitals. DVT and GI prophylaxis. Further recommendations as per clinical course of the patient DVT prophylaxis: Eliquis GI Prophylaxis: Ppi Prognosis is guarded
[2023-02-04] MEDS ORDERED: METOPROLOL TARTRATE 25 MG TAB PO STA (22:22)
[2023-02-04] MEDS ORDERED: DILTIAZEM DRIP BOLUS FROM BAG 1 MG SOLN IV ONE (22:59)
[2023-02-04] MEDS: DILTIAZEM 125 MG in SODIUM CHLORIDE 0.9% 100 ML IV SCH (23:18)
[2023-02-04] MEDS: PHENYLEPHRINE 40 MG in SODIUM CHLORIDE 0.9% 250 ML IV SCH (23:44)
[2023-02-05] MEDS: IPRATROPIUM-ALBUTEROL 3 ML NEB INHALATION SCH ×4 (01:17→19:55)
--- NOTE | 2023-02-05 01:34 | XR ---
EXAM: XR Chest, 1 View CLINICAL HISTORY: ITS.REASON XR Reason: r/o aspiration TECHNIQUE: Frontal view of the chest. COMPARISON: 02/04/2023 IMPRESSION: Diffuse interstitial opacities. Large right pleural effusion. Overall the lung opacities have mildly improved from prior
[2023-02-05] MEDS: NOREPINEPHRINE 4 MG in SODIUM CHLORIDE 0.9% 250 ML IV SCH ×2 (02:08→09:52)
[2023-02-05] MEDS: AMPICILLIN-SULBACTAM 3 GM in SODIUM CHLORIDE 0.9% 100 ML IVPB SCH ×4 (02:18→20:22)
[2023-02-05] MEDS ORDERED: guaiFENesin 600 MG TABLET.ER PO PRN (03:28)
[2023-02-05 04:42] LABS: Basophils % (A) 0 %; Eosinophils % (A) 0 %; HCT 35.6 % (39.0-53.0); HGB 10.6 gm/dL (13.0-17.5); Hypochromasia Marked; Lymphocytes % (A) 7 %; MCH 26.8 pg (25.0-35.0); MCHC 29.9 g/dL (31.0-37.0); MCV 89.7 fL (80.0-100.0); Mean Platelet Volume 8.4; Monocytes # (A) 0.3 k/uL (0-1.0); Monocytes % (A) 2 %; Neutrophils # (A) 13.1 k/uL (1.3-7.7); Neutrophils % (A) 91 %; Platelet Count 326 k/uL (150-450); RBC 3.97 m/uL (4.30-5.90); RDW 14.9 % (11.5-15.5); WBC 14.4 k/uL (3.8-10.6)
[2023-02-05 04:55] LABS: African American GFR (CKD) >90 (>60 ml/min/1.73 sqM); Anion Gap 4 mmol/L; Blood Urea Nitrogen 31 mg/dL (9-20); Calcium 8.6 mg/dL (8.4-10.2); Carbon Dioxide 38 mmol/L (22-30); Chloride 97 mmol/L (98-107); Glucose 144 mg/dL (74-99); Magnesium 1.7 mg/dL (1.6-2.3); Non-African American GFR(CKD) 88 (>60 ml/min/1.73 sqM); Potassium 4.7 mmol/L (3.5-5.1); Sodium 139 mmol/L (137-145)
[2023-02-05] MEDS ORDERED: Magnesium Replacement Protocol 1 EACH MISC MISCELLANE PRN (05:04)
[2023-02-05] MEDS ORDERED: MAGNESIUM SULFATE-D5W PMX 1 GM in DEXTROSE/WATER 1 100ML.BAG IVPB ONE (05:04)
[2023-02-05] MEDS: methylPREDNISolone SOD SUCCI 125 MG/2 ML VIAL IV SCH ×4 (06:03→23:34)
[2023-02-05] MEDS: DRONEDARONE 400 MG TAB PO SCH ×2 (06:38→17:20)
[2023-02-05] MEDS: KETOROLAC 15 MG/ML 1 ML VIAL IVP PRN (06:52)
[2023-02-05] MEDS: SODIUM CHLORIDE 0.9% 1,000 ML IV SCH (07:42)
--- NOTE | 2023-02-05 08:04 | P.PN ---
Subjective Progress Note Date: 02/05/23 I was asked to evaluate this 72 year-old male patient for acute respiratory distress. This is a male patient who lives in [facility] the patient has extensive medical problems and comorbidities most significant of which is non-small cell lung cancer/adenocarcinoma, stage IIIB. The patient was in the area with his son was Is to be a maxillofacial surgery trainee who is currently training add the [facility] [place] The patient was undergoing a dental extraction and the procedure was being performed by the son at his friend's office. 2 hours into the procedure, the patient became progressively more obtunded, lethargic, and quite encephalopathic and he was in significant is to distress. At that point, the procedure was aborted and the patient was brought into the emergency department. The patient was being bagged by mask ventilation on Route. The patient was given Halcion at the time of the procedure. No reported aspiration. He did encounter some bleeding from the gums yet, the son mentions that there is no reported massive aspiration or aspirate thin episode. Immediately, in the emergency department, the patient was placed on a BiPAP and the patient is currently on a BiPAP pressure of 24/7 cm of water with an FiO2 of 100%. Is able to generate tidal volumes above 400. He is tachypneic. Respiratory rate is in the mid 30s to low 40s. Initially was quite obtunded and lethargic and gradually he started recovering his mentation and mental status and at this point in time the patient is opening his eyes spontaneously and following simple commands. His initial blood gas showed a pH of 7.12 with a pCO2 of more than 120 and pO2 of 95. Subsequent blood gas showed a pH of 7.23 with a pCO2 of 102 and pO2 of 71. Noted the patient usually lives in a pCO2 in the mid 80s. His maintain on oxygen somewhat between 5-8 L nasal cannula. In terms of his history, the patient has encountered the previous ARDS back in 2016. Exact cause for the ARDS at that time was not known. The patient was intubated and placed on a mechanical ventilator for prolonged period of time and ultimately he developed some post ARDS scarring in the lungs bilaterally. Subsequently, while undergoing shoulder surgery, the patient had a hospital- acquired pneumonia and the patient had to be intubated and placed on the mechanical ventilation again for prolonged period of time. For now, the patient undergone bilateral shoulder replacement. During the course of his illness, the patient was diagnosed having stage IIIB non-small cell lung cancer/adenocarcinoma. He was treated with accommodation of chemoradiation therapy. History no was up by Dr. Bautista at [facility]. The patient was treated with [place] based regimen and following that the patient was given a total of 2 years of immunotherapy with Keytruda. The patient apparently did very well. His follow-up CTs showed no significant metabolic activity within the mediastinum and the patient had some chronic opacity in the right upper lobe and this was attributed to radiation-related scarring. He also developed a located right-sided pleural effusion. His undergone multiple drainage procedures of the pleural fluid on the right in the pleural fluid cytology has been negative for malignancy. I was able to review his most recent CAT scan of the chest that was done on 01/18/2023 through the [facility] system. The patient has chronic bilateral fibrotic changes and there is a loculated right basilar pleural effusion. Chronic scarlike nodular opacity in the right upper lobe and there is volume loss in the right upper lobe along with some mediastinal switch to the right. No active masses or lesions. No significant mediastinal lymphadenopathy. In addition, the patient was recently hospitalized for A. fib RVR and decompensated COPD and this admission was at [facility]. The patient was not intubated during that admission. He was treated with BiPAP and he was able to avoid intubation. In terms of his atrial fibrillation, the patient was treated with a combination of beta blockers and currently is on metoprolol and multiple back. The patient is also on anticoagulation with Eliquis. In terms of his COPD, Stiolto 2 puffs once a day, Xopenex as needed and the patient prefers Xopenex over albuterol as albuterol causes significant tachycardia. The patient has been also maintained on a prednisone dose of 10 mg on a daily basis. He is known to have hypothyroidism maintain on levothyroxine 50 g by mouth daily. Is also maintained on tamsulosin for BPH and this medication was discontinued as it was causing some degree of hypotension. Currently is on no immunotherapy. Recurrent left-sided WBC count 15.4, hemoglobin is 12.7 and a platelet count of 349. Sodium is at 140, potassium is 5.6, BUN is 27 with a creatinine 0.7. Troponins are negative. ProBNP level is 744. Chest x-ray showed a loculated right basilar pleural effusion. Volume loss on the right. Chronic fibrotic changes bilaterally with chronic interstitial infiltrates. This superimposed interstitial edema/pulmonary vessel congestion/pulmonary edema cannot be completely ruled out Note that the patient was taken off his anticoagulants for the dental procedure. No previous history of DVT or pulmonary embolism. Minimal amount of bleeding from his gum due to his recent dental extraction. 02/05/2023, the patient remains on a BiPAP. He was on BiPAP throughout the night. He was gradually improving and his mental status was gradually recovering as the patient's blood gas shows improvement in his hypercapnia. This morning, he is on a BiPAP at a pressure of 24/7 cm of water and FiO2 of 60%. Blood gas shows a pH of 7.34 with episodes of 74 is awake and alert and communicating. Unfortunately, overnight, the patient went into atrial flutter with rapid ventricular response. His current heart rate is 45. He was given Cardizem drip which resulted in significant hypotension. Cardizem drip is currently discontinued. The patient is currently on norepinephrine setting at 0.1 mcg/kg/m to maintain a mean arterial pressure above 60. His cardiac rhythm is atrial flutter at the rate of 145. The risk was at 14.4 with a hemoglobin 10.6 and a platelet count of 326. Sodium levels of 139, BUN is at 31 with a creatinine of 0.8. He was restarted back on his anticoagulation and he is currently on Eliquis 5 mg by mouth twice a day. He is on DuoNeb neb treatments and also on IV Solu-Medrol. IV fluids are running at 75 mL an hour. Noted the patient is also on metoprolol 75 mg by mouth twice a day. He was taken multaq on an outpatient basis. Cardiology has been consulted. He remains on IV Unasyn as an empiric antibiotic coverage. A repeat chest x-ray was done today. It shows a stable right-sided pleural effusion. Chronic right apical scarring and chronic interstitial infiltrates bilaterally are again seen. The patient is quite tachypneic breathing in the mid 30s. FiO2 has been weaned down to 50% and his pulse ox remained above 90%. Objective - Vital Signs Vital signs: Vital Signs Temp 97.6 F 02/05/23 00:00 Pulse 144 H 02/05/23 07:00 Resp 39 H 02/05/23 07:00 BP 86/68 02/05/23 00:30 Pulse Ox 99 02/05/23 07:00 FiO2 50 02/05/23 07:00 Intake & Output 02/04/23 02/05/23 02/05/23 18:59 06:59 18:59 Intake Total 575 1870.231 97.259 Output Total 775 615 30 Balance -200 1255.231 67.259 Weight 72.575 kg 68.1 kg Intake: IV 575 1600 75 Ampicillin-Sulbactam 3 gm 200 In Sodium Chloride 0.9% 100 ml @ 200 mls/hr IVPB Q6H [facility] Rx#:[id number] Sodium Chloride 0.9% 1, 75 900 75 000 ml @ 75 mls/hr IV . [id number] [facility] Rx#:[id number] Sodium Chloride 0.9% 500 500 ml 500 ml @ 999 mls/hr IV .Q31M [facility] Rx#:[id number] Sodium Chloride 0.9% 500 500 ml 500 ml @ 999 mls/hr IV .Q31M [facility] Rx#:[id number] Intake, IV Titration 270.231 22.259 Amount Diltiazem 125 mg In 17.5 Sodium Chloride 0.9% 100 ml @ 10 MG/HR 10 mls/hr IV .[id number] [facility] Rx#: [id number] Norepinephrine 4 mg In 157.841 22.259 Sodium Chloride 0.9% 250 ml @ 0.03 MCG/KG/MIN 8. 295 mls/hr IV .Q24H [facility] Rx#:[id number] Phenylephrine 40 mg In 94.890 Sodium Chloride 0.9% 250 ml @ 1 MCG/KG/MIN 27.651 mls/hr IV .Q9H12M [facility] Rx# :[id number] Output: Urine 775 615 30 Other: Voiding Method Indwelling Catheter ABP, PAP, CO, CI - Last Documented Arterial Blood Pressure 102/68 - Exam Gen. appearance, the patient is a mild degree of respiratory distress. He is using some accessory muscles of breathing. However, I was told by the family that this is baseline. He remains on a BiPAP at a pressure of 24/7 cm of water. Affect is weaned down to 50%. Awake and alert and communicating. Head exam was generally normal. There was no scleral icterus or corneal arcus. Mucous membranes were moist. Neck was supple and without jugular venous distension, thyromegaly, or carotid bruits. Carotids were easily palpable bilaterally. There was no adenopathy. The patient has dental extraction and signs of postsurgical intervention on his gums both in the upper and lower jaw. No active bleeding at this point in time. Lungs sounds are markedly diminished bilaterally. There is diffuse expiratory wheezes throughout the lung [place]. Crackles in the mid and lower lung field bilaterally. Air entry is diminished in the right compared to the left. Cardiac exam revealed the PMI to be normally situated and sized. The rhythm was regular and no extrasystoles were noted during several minutes of auscultation. The first and second heart sounds were normal and physiologic splitting of the second heart sound was noted. There were no murmurs, rubs, clicks, or gallops. Abdominal exam revealed normal bowel sounds. The abdomen was soft, non-tender, and without masses, organomegaly, or appreciable enlargement of the abdominal aorta. Examination of the extremities revealed easily palpable radial, femoral and pedal pulses. There was no cyanosis, clubbing or edema. Examination of the skin revealed no evidence of significant rashes, suspicious appearing nevi or other concerning lesions. Neurologically the patient is awake and alert. - Labs CBC & Chem 7: 02/05/23 04:05 02/05/23 04:05 Labs: Abnormal Lab Results - Last 24 Hours (Table) 02/04/23 02/04/23 02/04/23 Range/Units 12:40 12:40 12:45 WBC 13.4 H (3.8-10.6) k/uL RBC (4.30-5.90) m/uL Hgb 12.5 L (13.0-17.5) gm/dL Hct (39.0-53.0) % MCHC 29.3 L (31.0-37.0) g/dL Neutrophils # (1.3-7.7) k/uL Lymphocytes # 4.9 H (1.0-4.8) k/uL ABG pH 7.12 L* (7.35-7.45) ABG pCO2 >120 H* (35-45) mmHg ABG pO2 (83-108) mmHg ABG HCO3 0 L* (21-25) mmol/L ABG Total CO2 0 L (19-24) mmol/L ABG O2 Saturation (94-97) % Potassium 5.6 H (3.5-5.1) mmol/L Chloride 92 L (98-107) mmol/L Carbon Dioxide 40 H (22-30) mmol/L BUN 27 H (9-20) mg/dL Glucose 192 H (74-99) mg/dL POC Glucose (mg/dL) (70-110) mg/dL 02/04/23 02/04/23 02/04/23 Range/Units 13:47 17:20 17:37 WBC (3.8-10.6) k/uL RBC (4.30-5.90) m/uL Hgb (13.0-17.5) gm/dL Hct (39.0-53.0) % MCHC (31.0-37.0) g/dL Neutrophils # (1.3-7.7) k/uL Lymphocytes # (1.0-4.8) k/uL ABG pH 7.24 L 7.28 L (7.35-7.45) ABG pCO2 102 H* 90 H* (35-45) mmHg ABG pO2 72 L 200 H (83-108) mmHg ABG HCO3 43 H* 42 H* (21-25) mmol/L ABG Total CO2 47 H 45 H (19-24) mmol/L ABG O2 Saturation 92.6 L 99.1 H (94-97) % Potassium (3.5-5.1) mmol/L Chloride (98-107) mmol/L Carbon Dioxide (22-30) mmol/L BUN (9-20) mg/dL Glucose (74-99) mg/dL POC Glucose (mg/dL) 111 H (70-110) mg/dL 02/04/23 02/05/23 02/05/23 Range/Units 20:33 04:05 04:05 WBC 14.4 H (3.8-10.6) k/uL RBC 3.97 L (4.30-5.90) m/uL Hgb 10.6 L (13.0-17.5) gm/dL Hct 35.6 L (39.0-53.0) % MCHC 29.9 L (31.0-37.0) g/dL Neutrophils # 13.1 H (1.3-7.7) k/uL Lymphocytes # (1.0-4.8) k/uL ABG pH 7.34 L (7.35-7.45) ABG pCO2 74 H* (35-45) mmHg ABG pO2 (83-108) mmHg ABG HCO3 40 H* (21-25) mmol/L ABG Total CO2 42 H (19-24) mmol/L ABG O2 Saturation (94-97) % Potassium (3.5-5.1) mmol/L Chloride 97 L (98-107) mmol/L Carbon Dioxide 38 H (22-30) mmol/L BUN 31 H (9-20) mg/dL Glucose 144 H (74-99) mg/dL POC Glucose (mg/dL) (70-110) mg/dL Assessment and Plan Plan: Acute on chronic hypoxic/hypercapnic respiratory failure, likely due to COPD exacerbation. Underlying aspiration pneumonia/pulmonary edema/interstitial edema cannot be completely ruled out. The patient is currently on a BiPAP at a pressure of 24/7 with an FiO2 of 50%. Follow-up blood gases showed improvement in the acid-base status. Chest x-ray shows chronic interstitial changes/fibrosis with right apical scarring and a stable right-sided pleural effusion. Altered mental status secondary to CO2 narcosis due to acute on top of chronic hypercapnic respiratory failure, recovered and the patient is currently awake and alert. A flutter with rapid ventricular response Hypotension, pressor dependent probably related to A. flutter, RVR Advanced oxygen-dependent COPD and steroid dependent COPD, maintain oxygen at 5 L at baseline, maintained on oral prednisone at baseline. The patient also has a AVAPS machine at home, encouraged ventilator which is set at a time. Tidal volume of 350 mL. 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 fib, current rhythm is sinus and the patient has limited on a combination of multiaq, metoprolol and anticoagulation with Eliquis Previous history of hospital-acquired pneumonia requiring intubation mechanical ventilation Previous history of ARDS requiring intubation mechanical ventilation Previous hospitalization for A. fib RVR, back in July 2022. Recent dental extraction done locally in a dental office. The son is a maxillofacial surgeon and he was the one who was performing the procedure Hypertension BPH Hypothyroidism Plan The patient remains critically ill. We'll continue BiPAP on and off during the day, will give him also showed a high flow nasal cannula. We'll give Lopressor 2.5 mg IV now and repeat and consider esmolol drip DuoNeb neb blotchiness 4 times a day Continue budesonide updrafts twice a day IV Solu Medrol 60 mg every 6 hours We'll cover the patient with IV Unasyn Anticoagulation with Eliquis Give Toradol 15 mg every 6 hours for pain control as the patient is having pain in his gums. Would avoid narcotic medications due to his respiratory status IV Protonix Heparin subcu for DVT prophylaxis Resume thyroid medications, the patient is on Synthroid Condition is Critical. We'll consult cardiology. We'll obtain a bedside echocardiogram The patient will be admitted to the intensive care unit and will continue to follow and make further recommendations based on his progress. This evaluation was done in more than one hour. The patient was seen in the emergency department. Condition is critical. High risk for requiring intubation mechanical ventilation. Physical indicating evaluation that was done in more than 30 minutes. Time with Patient: Greater than 30
[2023-02-05] MEDS: METOPROLOL TARTRATE 5 MG/5 ML VIAL IVP PRN ×2 (08:13→08:30)
[2023-02-05] MEDS: APIXABAN 5 MG TAB PO SCH ×2 (09:12→20:22)
[2023-02-05] MEDS: PANTOPRAZOLE 40 MG/10 ML VIAL IV SCH (09:14)
[2023-02-05] MEDS: PHENYLEPHRINE 40 MG in SODIUM CHLORIDE 0.9% 250 ML IV SCH (09:15)
[2023-02-05] MEDS: ESMOLOL IN SODIUM CHLORIDE PMX 2.5 GM in SALINE 1 250ML.BAG IV SCH ×2 (09:15→09:53)
--- NOTE | 2023-02-05 09:31 | XR ---
EXAMINATION TYPE: XR chest 1V DATE OF EXAM: 02/05/2023 COMPARISON: 02/04/2023 HISTORY: 72-year-old male COPD TECHNIQUE: Single frontal view of the chest is obtained. FINDINGS: Bilateral reverse shoulder plasty is partially visualized. Moderate right pleural effusion persists. Extensive coarse reticular opacities persist. Corresponding consolidation volume loss righ t apex with some rightward tracheal deviation. IMPRESSION: Suspect background severe interstitial fibrosis. Chronic volume loss right apex. Ongoing moderate right pleural effusion. Unchanged from 02/04/2023. Superimposed acute interstitial lung dis ease including CHF not excluded.
[2023-02-05] MEDS: DILTIAZEM 125 MG in SODIUM CHLORIDE 0.9% 100 ML IV SCH (09:53)
[2023-02-05] MEDS ORDERED: ETOMIDATE 2 MG/ML 10 ML VIAL ONE (11:25)
[2023-02-05] MEDS ORDERED: HEPARIN SODIUM 1,000 UN/ML (10ML VL) IVP ONE (11:45)
[2023-02-05] MEDS: METOPROLOL TARTRATE 25 MG TAB PO SCH ×3 (11:52→20:22)
[2023-02-05] MEDS ORDERED: SODIUM CHLORIDE 0.9% 1,000 ML IV SCH (16:14)
[2023-02-05] MEDS: SENNOSIDES 8.6 MG TAB PO SCH (20:22)
--- NOTE | 2023-02-05 20:47 | P.PN ---
Subjective This is a pleasant 72 years old male with multiple medical problems include Atrial Fibrillation, Cancer (Adenocarcinoma of the lung stage III B), COPD, BPH Of worsening dyspnea. Today he wants to his oral surgeon which is a family member and his son for tooth extraction and he received benzodiazepine, this is followed by worsening of his respiratory status is significantly and now he presents with respiratory distress. He was converted to keep neck and tachycardic and hypotensive. Family discussed the case with pulmonary team and decided not to intubate the patient treated with BiPAP Present that patient cannot provide information Bedside WBCs 13.4 Patient has initial chest x-ray repeat chest x-ray showing improvement irrigation with multifocal infiltrate Normal sinus rhythm at 66 with a repolarization which is chronic 02/05/2023 Awake and can talk and interactive He is off BiPAP and his wish to high flow nasal cannula at 10 L/m he Is less tachypneic and tachycardic Interstitial fibrosis with moderate right pleural effusion. Unlikely CHF. He remains on Cardizem drip and other liquids. Also his an IV Solu-Medrol and Unasyn Normal saline 40 mm/h is a started today. Labs showing stable WBC 14,000 and hemoglobin 10.6. Family at bedside and answered their questions Active Medications Generic Name Dose Route Start Last Admin Trade Name Freq PRN Reason Stop Dose Admin Albuterol/Ipratropium 3 ml 02/04/23 20:00 02/05/23 19:55 Ipratropium-Albuterol 3 Ml Neb INHALATION 3 ml RT-Q6H [facility] Administration Apixaban 5 mg 02/05/23 09:00 02/05/23 20:22 Apixaban 5 Mg Tab PO 5 mg BID [facility] Administration Protocol Dronedarone 400 mg 02/04/23 17:30 02/05/23 17:20 Dronedarone 400 Mg Tab PO 400 mg AC-BID [facility] Administration Guaifenesin 600 mg 02/06/23 09:00 Guaifenesin 600 Mg Tablet.Er PO Q12HR [facility] Ampicillin Sodium/Sulbactam 100 mls @ 200 mls/hr 02/04/23 20:00 02/05/23 20:22 Sodium 3 gm/ Sodium Chloride IVPB 200 mls/hr Q6H [facility] Administration Protocol Sodium Chloride 1,000 mls @ 40 mls/hr 02/05/23 16:14 02/05/23 16:14 Saline 0.9% IV 40 mls/hr .Q24H [facility] Administration Ketorolac Tromethamine 15 mg 02/04/23 14:13 02/05/23 06:52 Ketorolac 15 Mg/Ml 1 Ml Vial IVP 02/09/23 14:13 15 mg Q6HR PRN Administration Pain Methylprednisolone Sodium Succinate 60 mg 02/04/23 18:00 02/05/23 17:18 Methylprednisolone Sod Succi 125 Mg/2 Ml Vial IV 60 mg Q6HR [facility] Administration Metoprolol Tartrate 75 mg 02/04/23 21:00 02/05/23 20:22 Metoprolol Tartrate 25 Mg Tab PO 75 mg BID [facility] Administration Miscellaneous Information 1 each 02/05/23 05:04 Magnesium Replacement Protocol 1 Each Misc MISCELLANE DAILY PRN Per Protocol Protocol Naloxone HCl 0.2 mg 02/04/23 14:36 Naloxone 0.4 Mg/Ml 1 Ml Vial IV Q2M PRN Opioid Reversal Pantoprazole Sodium 40 mg 02/05/23 09:00 02/05/23 09:14 Pantoprazole 40 Mg/10 Ml Vial IV 40 mg DAILY [facility] Administration Senna 8.6 mg 02/05/23 21:00 02/05/23 20:22 Sennosides 8.6 Mg Tab PO 8.6 mg DAILY [facility] Administration Tamsulosin HCl 0.4 mg 02/06/23 08:30 Tamsulosin 0.4 Mg Cap.Er.24h PO 02/06/23 08:31 PC[id number] Objective - Vital Signs Vital signs: Vital Signs Temp 97.6 F 02/05/23 20:00 Pulse 85 02/05/23 20:30 Resp 46 H 02/05/23 20:30 BP 116/68 02/05/23 20:30 Pulse Ox 90 L 02/05/23 20:30 FiO2 50 02/05/23 20:00 Intake & Output 02/05/23 02/05/23 02/06/23 06:59 18:59 06:59 Intake Total 4205.795 5500.023 40 Output Total 615 304 30 Balance 7424.318 2103.023 10 Weight 68.1 kg Intake: IV 1600 1230 40 Ampicillin-Sulbactam 3 gm 200 400 In Sodium Chloride 0.9% 100 ml @ 200 mls/hr IVPB Q6H [facility] Rx#:[id number] Sodium Chloride 0.9% 1, 40 000 ml @ 40 mls/hr IV . Q24H [facility] Rx#:[id number] Sodium Chloride 0.9% 1, 900 830 000 ml @ 75 mls/hr IV . [id number] [facility] Rx#:[id number] Sodium Chloride 0.9% 500 500 ml 500 ml @ 999 mls/hr IV .Q31M [facility] Rx#:[id number] Intake, IV Titration 270.231 98.023 Amount Diltiazem 125 mg In 17.5 Sodium Chloride 0.9% 100 ml @ 10 MG/HR 10 mls/hr IV .[id number] [facility] Rx#: [id number] Norepinephrine 4 mg In 157.841 98.023 Sodium Chloride 0.9% 250 ml @ 0.03 MCG/KG/MIN 8. 295 mls/hr IV .Q24H [facility] Rx#:[id number] Phenylephrine 40 mg In 94.890 Sodium Chloride 0.9% 250 ml @ 1 MCG/KG/MIN 27.651 mls/hr IV .Q9H12M [facility] Rx# :[id number] Oral 240 Output: Urine 615 304 30 Other: Voiding Method Indwelling Catheter Indwelling Catheter Indwelling Catheter ABP, PAP, CO, CI - Last Documented Arterial Blood Pressure 112/55 - Exam -GENERAL: The patient is alert and oriented x3, in mild respiratory acute distress. Well developed, well nourished. HEENT: Pupils are round and equally reacting to light. EOMI. No scleral icterus. No conjunctival pallor. Normocephalic, atraumatic. No pharyngeal erythema. No thyromegaly. CARDIOVASCULAR: S1 and S2 present. No murmurs, rubs, or gallops. -PULMONARY: Chest is clear to auscultation, no wheezing ,. Bilateral crepitation. Decreased air entry on the right side. Tachypneic ABDOMEN: Soft, nontender, nondistended, normoactive bowel sounds. No palpable organomegaly. MUSCULOSKELETAL: No joint swelling or deformity. EXTREMITIES: No cyanosis, clubbing, or pedal edema. NEUROLOGICAL: Gross neurological examination did not reveal any focal deficits. SKIN: No rashes. no petechiae. - Labs CBC & Chem 7: 02/05/23 04:05 02/05/23 04:05 Labs: Abnormal Lab Results - Last 24 Hours (Table) 02/04/23 02/05/23 02/05/23 Range/Units 20:33 04:05 04:05 WBC 14.4 H (3.8-10.6) k/uL RBC 3.97 L (4.30-5.90) m/uL Hgb 10.6 L (13.0-17.5) gm/dL Hct 35.6 L (39.0-53.0) % MCHC 29.9 L (31.0-37.0) g/dL Neutrophils # 13.1 H (1.3-7.7) k/uL ABG pH 7.34 L (7.35-7.45) ABG pCO2 74 H* (35-45) mmHg ABG HCO3 40 H* (21-25) mmol/L ABG Total CO2 42 H (19-24) mmol/L Chloride 97 L (98-107) mmol/L Carbon Dioxide 38 H (22-30) mmol/L BUN 31 H (9-20) mg/dL Glucose 144 H (74-99) mg/dL Assessment and Plan Assessment: Acute COPD exacerbation Cannot rule out postobstructive pneumonia Acute hypoxic hypercapnic respiratory failure Acute respiratory and metabolic acidosis Metabolic encephalopathy Paroxysmal atrial fibrillation on blood thinner Eliquis Adenocarcinoma of the lung stage III History of benign prostatic hypertrophy Plan: New with Unasyn Continue with IV Solu-Medrol Continue with high flow nasal cannula Patient is an normal saline 40 mL/h Continue with Eliquis cardiology and pulmonary consult Labs and medication were reviewed.. Continue same treatment. Continue with symptomatic treatment. Resume home medication. Monitor labs and vitals. DVT and GI prophylaxis. Further recommendations as per clinical course of the patient DVT prophylaxis: Eliquis GI Prophylaxis: Ppi Prognosis is guarded
[2023-02-06] MEDS: AMPICILLIN-SULBACTAM 3 GM in SODIUM CHLORIDE 0.9% 100 ML IVPB SCH ×2 (02:22→08:09)
[2023-02-06] MEDS: IPRATROPIUM-ALBUTEROL 3 ML NEB INHALATION SCH ×3 (02:50→15:08)
[2023-02-06 04:31] LABS: Basophils % (A) 0 %; Eosinophils # (A) 0.1 k/uL (0-0.7); Eosinophils % (A) 1 %; HCT 33.1 % (39.0-53.0); HGB 9.9 gm/dL (13.0-17.5); Hypochromasia Marked; Lymphocytes # (A) 1.1 k/uL (1.0-4.8); Lymphocytes % (A) 10 %; MCH 27.4 pg (25.0-35.0); MCHC 29.8 g/dL (31.0-37.0); MCV 91.7 fL (80.0-100.0); Mean Platelet Volume 8.6; Monocytes # (A) 0.3 k/uL (0-1.0); Monocytes % (A) 3 %; Neutrophils # (A) 9.2 k/uL (1.3-7.7); Neutrophils % (A) 87 %; Platelet Count 254 k/uL (150-450); RBC 3.61 m/uL (4.30-5.90); RDW 15.2 % (11.5-15.5); WBC 10.7 k/uL (3.8-10.6)
[2023-02-06 04:37] LABS: African American GFR (CKD) >90 (>60 ml/min/1.73 sqM); Blood Urea Nitrogen 33 mg/dL (9-20); Calcium 8.8 mg/dL (8.4-10.2); Chloride 100 mmol/L (98-107); Glucose 134 mg/dL (74-99); Magnesium 2.1 mg/dL (1.6-2.3); Non-African American GFR(CKD) >90 (>60 ml/min/1.73 sqM); Potassium 4.8 mmol/L (3.5-5.1); Sodium 141 mmol/L (137-145)
[2023-02-06 04:43] LABS: Anion Gap 2 mmol/L
[2023-02-06 04:50] LABS: Carbon Dioxide 39 mmol/L (22-30)
[2023-02-06] MEDS: DRONEDARONE 400 MG TAB PO SCH (06:48)
[2023-02-06] MEDS: methylPREDNISolone SOD SUCCI 125 MG/2 ML VIAL IV SCH (06:48)
--- NOTE | 2023-02-06 07:25 | XR ---
EXAMINATION TYPE: XR chest 1V DATE OF EXAM: 02/06/2023 5:23 AM CLINICAL INDICATION:Male, 72 years old with history of copd; [facility] COMPARISON: Chest radiograph 02/05/2023. TECHNIQUE: XR chest 1V Frontal view of the chest. FINDINGS: There is redemonstration of bilateral airspace opacities, with interval progression of right-sided mo derate pleural effusion. Coarse reticular opacities are again identified and are persistent. Stable r ight tracheal deviation. The osseous structures are also stable in appearance. Reverse shoulder arthr oplasty are identified. IMPRESSION: Redemonstrated bilateral suspected acute on chronic airspace disease, with progression of now moderat e right-sided pleural effusion.
[2023-02-06] MEDS: PANTOPRAZOLE 40 MG/10 ML VIAL IV SCH (08:09)
[2023-02-06] MEDS: METOPROLOL TARTRATE 25 MG TAB PO SCH (08:09)
[2023-02-06] MEDS: APIXABAN 5 MG TAB PO SCH (08:09)
[2023-02-06] MEDS: SENNOSIDES 8.6 MG TAB PO SCH (08:09)
[2023-02-06] MEDS ORDERED: TAMSULOSIN 0.4 MG CAP.ER.24H PO SCH (08:30)
[2023-02-06] MEDS ORDERED: guaiFENesin 600 MG TABLET.ER PO SCH (09:00)
--- NOTE | 2023-02-06 09:02 | P.PN ---
Subjective This is a pleasant 72 years old male with multiple medical problems include Atrial Fibrillation, Cancer (Adenocarcinoma of the lung stage III B), COPD, BPH Of worsening dyspnea. Today he wants to his oral surgeon which is a family member and his son for tooth extraction and he received benzodiazepine, this is followed by worsening of his respiratory status is significantly and now he presents with respiratory distress. He was converted to keep neck and tachycardic and hypotensive. Family discussed the case with pulmonary team and decided not to intubate the patient treated with BiPAP Present that patient cannot provide information Bedside WBCs 13.4 Patient has initial chest x-ray repeat chest x-ray showing improvement irrigation with multifocal infiltrate Normal sinus rhythm at 66 with a repolarization which is chronic 02/05/2023 Awake and can talk and interactive He is off BiPAP and his wish to high flow nasal cannula at 10 L/m he Is less tachypneic and tachycardic Interstitial fibrosis with moderate right pleural effusion. Unlikely CHF. He remains on Cardizem drip and other liquids. Also his an IV Solu-Medrol and Unasyn Normal saline 40 mm/h is a started today. Labs showing stable WBC 14,000 and hemoglobin 10.6. Family at bedside and answered their questions 02/06/2023 Patient this morning he remains on BiPAP machine with setting of 24/7 an FiO2 of 50% Also later on was on 15 L high flow nasal cannula. No chest pain. Patient off pressors Levophed today Still mildly tachypneic but the tachycardia improved. Chest x-ray showing extensive interstitial fibrosis with moderate right-sided pleural effusion He remains on IV Solu-Medrol 60 mg, units in normal saline 40 mm. Also his Eliquis 2.5 milligrams for his A. fib Objective - Vital Signs Vital signs: Vital Signs Temp 97.6 F 02/05/23 20:00 Pulse 69 02/06/23 07:30 Resp 45 H 02/06/23 07:30 BP 116/70 02/06/23 07:30 Pulse Ox 96 02/06/23 07:30 FiO2 50 02/06/23 07:30 Intake & Output 02/05/23 02/06/23 02/06/23 18:59 06:59 18:59 Intake Total 1568.023 680 90 Output Total 304 415 Balance 1264.023 265 90 Weight 67.8 kg Intake: IV 1230 680 40 Ampicillin-Sulbactam 3 gm 400 200 In Sodium Chloride 0.9% 100 ml @ 200 mls/hr IVPB Q6H [facility] Rx#:[id number] Sodium Chloride 0.9% 1, 480 40 000 ml @ 40 mls/hr IV . Q24H [facility] Rx#:[id number] Sodium Chloride 0.9% 1, 830 000 ml @ 75 mls/hr IV . [id number] [facility] Rx#:[id number] Intake, IV Titration 98.023 Amount Norepinephrine 4 mg In 98.023 Sodium Chloride 0.9% 250 ml @ 0.03 MCG/KG/MIN 8. 295 mls/hr IV .Q24H [facility] Rx#:[id number] Oral 240 50 Output: Urine 304 415 Other: Voiding Method Indwelling Catheter Indwelling Catheter ABP, PAP, CO, CI - Last Documented Arterial Blood Pressure 115/50 - Exam -GENERAL: The patient is alert and oriented x3, in mild respiratory acute distress. Well developed, well nourished. HEENT: Pupils are round and equally reacting to light. EOMI. No scleral icterus. No conjunctival pallor. Normocephalic, atraumatic. No pharyngeal erythema. No thyromegaly. CARDIOVASCULAR: S1 and S2 present. No murmurs, rubs, or gallops. -PULMONARY: Chest is clear to auscultation, no wheezing ,. Bilateral crepitat ion. Decreased air entry on the right side. Tachypneic ABDOMEN: Soft, nontender, nondistended, normoactive bowel sounds. No palpable organomegaly. MUSCULOSKELETAL: No joint swelling or deformity. EXTREMITIES: No cyanosis, clubbing, or pedal edema. NEUROLOGICAL: Gross neurological examination did not reveal any focal deficits. SKIN: No rashes. no petechiae. - Labs CBC & Chem 7: 02/06/23 04:15 02/06/23 04:15 Labs: Abnormal Lab Results - Last 24 Hours (Table) 02/06/23 02/06/23 Range/Units 04:15 04:15 WBC 10.7 H (3.8-10.6) k/uL RBC 3.61 L (4.30-5.90) m/uL Hgb 9.9 L (13.0-17.5) gm/dL Hct 33.1 L (39.0-53.0) % MCHC 29.8 L (31.0-37.0) g/dL Neutrophils # 9.2 H (1.3-7.7) k/uL Carbon Dioxide 39 H (22-30) mmol/L BUN 33 H (9-20) mg/dL Glucose 134 H (74-99) mg/dL Microbiology - Last 24 Hours (Table) 02/04/23 18:10 Blood Culture - Preliminary Blood 02/04/23 17:40 Blood Culture - Preliminary Blood Assessment and Plan Assessment: Acute COPD exacerbation Cannot rule out postobstructive pneumonia Acute hypoxic hypercapnic respiratory failure Acute respiratory and metabolic acidosis Metabolic encephalopathy Paroxysmal atrial fibrillation on blood thinner Eliquis Adenocarcinoma of the lung stage III History of benign prostatic hypertrophy Plan: New with Unasyn Continue with IV Solu-Medrol Continue with high flow nasal cannula Patient is an normal saline 40 mL/h Continue with Eliquis cardiology and pulmonary consult Labs and medication were reviewed.. Continue same treatment. Continue with symptomatic treatment. Resume home medication. Monitor labs and vitals. DVT and GI prophylaxis. Further recommendations as per clinical course of the patient DVT prophylaxis: Eliquis GI Prophylaxis: Ppi Prognosis is guarded
[2023-02-06] MEDS ORDERED: predniSONE 10 MG TAB PO SCH (09:30)
[2023-02-06 09:35] VITALS: TEMP 97.5
--- NOTE | 2023-02-06 11:39 | P.EPPROC ---
- EP Procedure Note Electrophysiology Procedure Note: Diagnosis Atrial flutter unresponsive to therapy, with RVR, symptomatic Hypotensive Procedure Successful electrical cardioversion with 100 J shock 4 mg etomidate given Patient tolerated the procedure well He woke up within a few minutes and was alert and awake in about 15 minutes There was an immediate improvement in his blood pressure in sinus rhythm Plan Continue anticoagulation Continue Multaq If blood pressure remains stable resume metoprolol
--- NOTE | 2023-02-06 11:44 | P.PN ---
Subjective Patient sitting comfortably in bed Remains in sinus rhythm Blood pressure in the normal range 180/67 mmHg Respirations 22 On oxygen Pulse rate in the 60s Impression Advanced lung disease, on home oxygen Patient was admitted with respiratory depression secondary to sedatives given during oromaxillary procedure as an outpatient Initially in sinus rhythm Later on Tuesday evening he went into atrial flutter once again. He has had atrial flutter before Atrial flutter with RVR with hypotension and unresponsive to therapy Successful electrical cardioversion yesterday to sinus rhythm Norepinephrine drip and all pressors discontinued Suggest Continue ELIQUIS 5 g twice daily Continue Multaq 400 mg twice daily Continue metoprolol tartrate 75 mg twice daily From a cardiac standpoint the patient may go home and follow-up with his paralegal instructor Dr. Alvarado, at [facility] Objective - Vital Signs Vital signs: Vital Signs Temp 97.5 F L 02/06/23 08:00 Pulse 60 02/06/23 11:00 Resp 22 02/06/23 11:00 BP 108/67 02/06/23 11:00 Pulse Ox 98 02/06/23 11:00 FiO2 50 02/06/23 07:30 Intake & Output 02/05/23 02/06/23 02/06/23 18:59 06:59 18:59 Intake Total 1568.023 680 460 Output Total 304 415 150 Balance 1264.023 265 310 Weight 67.8 kg Intake: IV 1230 680 260 Ampicillin-Sulbactam 3 gm 400 200 100 In Sodium Chloride 0.9% 100 ml @ 200 mls/hr IVPB Q6H [facility] Rx#:[id number] Sodium Chloride 0.9% 1, 480 160 000 ml @ 40 mls/hr IV . Q24H [facility] Rx#:[id number] Sodium Chloride 0.9% 1, 830 000 ml @ 75 mls/hr IV . [id number] [facility] Rx#:[id number] Intake, IV Titration 98.023 Amount Norepinephrine 4 mg In 98.023 Sodium Chloride 0.9% 250 ml @ 0.03 MCG/KG/MIN 8. 295 mls/hr IV .Q24H [facility] Rx#:[id number] Oral 240 200 Output: Urine 304 415 150 Other: Voiding Method Indwelling Catheter Indwelling Catheter Bedside Commode # Voids 1 # Bowel Movements 1 ABP, PAP, CO, CI - Last Documented Arterial Blood Pressure 112/54 - Labs CBC & Chem 7: 02/06/23 04:15 02/06/23 04:15 Labs: Abnormal Lab Results - Last 24 Hours (Table) 02/06/23 02/06/23 Range/Units 04:15 04:15 WBC 10.7 H (3.8-10.6) k/uL RBC 3.61 L (4.30-5.90) m/uL Hgb 9.9 L (13.0-17.5) gm/dL Hct 33.1 L (39.0-53.0) % MCHC 29.8 L (31.0-37.0) g/dL Neutrophils # 9.2 H (1.3-7.7) k/uL Carbon Dioxide 39 H (22-30) mmol/L BUN 33 H (9-20) mg/dL Glucose 134 H (74-99) mg/dL Microbiology - Last 24 Hours (Table) 02/04/23 18:10 Blood Culture - Preliminary Blood 02/04/23 17:40 Blood Culture - Preliminary Blood
--- NOTE | 2023-02-06 11:48 | P.PN ---
Subjective Progress Note Date: 02/06/23 I was asked to evaluate this 72 year-old male patient for acute respiratory distress. This is a male patient who lives in [facility] the patient has extensive medical problems and comorbidities most significant of which is non-small cell lung cancer/adenocarcinoma, stage IIIB. The patient was in the area with his son was Is to be a maxillofacial surgery trainee who is currently training add the [employer]. The patient was undergoing a dental extraction and the procedure was being performed by the son at his friend's office. 2 hours into the procedure, the patient became progressively more obtunded, lethargic, and quite encephalopathic and he was in significant is to distress. At that point, the procedure was aborted and the patient was brought into the emergency department. The patient was being bagged by mask ventilation on Route. The patient was given Halcion at the time of the procedure. No reported aspiration. He did encounter some bleeding from the gums yet, the son mentions that there is no reported massive aspiration or aspirate thin episode. Immediately, in the emergency department, the patient was placed on a BiPAP and the patient is currently on a BiPAP pressure of 24/7 cm of water with an FiO2 of 100%. Is able to generate tidal volumes above 400. He is tachypneic. Respiratory rate is in the mid 30s to low 40s. Initially was quite obtunded and lethargic and gradually he started recovering his mentation and mental status and at this point in time the patient is opening his eyes spontaneously and following simple commands. His initial blood gas showed a pH of 7.12 with a pCO2 of more than 120 and pO2 of 95. Subsequent blood gas showed a pH of 7.23 with a pCO2 of 102 and pO2 of 71. Noted the patient usually lives in a pCO2 in the mid 80s. His maintain on oxygen somewhat between 5-8 L nasal cannula. In terms of his history, the patient has encountered the previous ARDS back in 2016. Exact cause for the ARDS at that time was not known. The patient was intubated and placed on a mechanical ventilator for prolonged period of time and ultimately he developed some post ARDS scarring in the lungs bilaterally. Subsequently, while undergoing shoulder surgery, the patient had a hospital- acquired pneumonia and the patient had to be intubated and placed on the mechanical ventilation again for prolonged period of time. For now, the patient undergone bilateral shoulder replacement. During the course of his illness, the patient was diagnosed having stage IIIB non-small cell lung cancer/adenocarcinoma. He was treated with accommodation of chemoradiation therapy. History no was up by Dr. Bautista at [facility]. The patient was treated with [place] based regimen and following that the patient was given a total of 2 years of immunotherapy with Keytruda. The patient apparently did very well. His follow-up CTs showed no significant metabolic activity within the mediastinum and the patient had some chronic opacity in the right upper lobe and this was attributed to radiation-related scarring. He also developed a located right-sided pleural effusion. His undergone multiple drainage procedures of the pleural fluid on the right in the pleural fluid cytology has been negative for malignancy. I was able to review his most recent CAT scan of the chest that was done on 01/18/2023 through the [facility] [employer] system. The patient has chronic bilateral fibrotic changes and there is a loculated right basilar pleural effusion. Chronic scarlike nodular opacity in the right upper lobe and there is volume loss in the right upper lobe along with some mediastinal switch to the right. No active masses or lesions. No significant mediastinal lymphadenopathy. In addition, the patient was recently hospitalized for A. fib RVR and decompensated COPD and this admission was at [facility]. The patient was not intubated during that admission. He was treated with BiPAP and he was able to avoid intubation. In terms of his atrial fibrillation, the patient was treated with a combination of beta blockers and currently is on metoprolol and multiple back. The patient is also on anticoagulation with Eliquis. In terms of his COPD, Stiolto 2 puffs once a day, Xopenex as needed and the patient prefers Xopenex over albuterol as albuterol causes significant tachycardia. The patient has been also maintained on a prednisone dose of 10 mg on a daily basis. He is known to have hypothyroidism maintain on levothyroxine 50 g by mouth daily. Is also maintained on tamsulosin for BPH and this medication was discontinued as it was causing some degree of hypotension. Currently is on no immunotherapy. Recurrent left-sided WBC count 15.4, hemoglobin is 12.7 and a platelet count of 349. Sodium is at 140, potassium is 5.6, BUN is 27 with a creatinine 0.7. Troponins are negative. ProBNP level is 744. Chest x-ray showed a loculated right basilar pleural effusion. Volume loss on the right. Chronic fibrotic changes bilaterally with chronic interstitial infiltrates. This superimposed interstitial edema/pulmonary vessel congestion/pulmonary edema cannot be completely ruled out Note that the patient was taken off his anticoagulants for the dental procedure. No previous history of DVT or pulmonary embolism. Minimal amount of bleeding from his gum due to his recent dental extraction. 02/05/2023, the patient remains on a BiPAP. He was on BiPAP throughout the night. He was gradually improving and his mental status was gradually recovering as the patient's blood gas shows improvement in his hypercapnia. This morning, he is on a BiPAP at a pressure of 24/7 cm of water and FiO2 of 60%. Blood gas shows a pH of 7.34 with episodes of 74 is awake and alert and communicating. Unfortunately, overnight, the patient went into atrial flutter with rapid ventricular response. His current heart rate is 45. He was given Cardizem drip which resulted in significant hypotension. Cardizem drip is currently discontinued. The patient is currently on norepinephrine setting at 0.1 mcg/kg/m to maintain a mean arterial pressure above 60. His cardiac rhythm is atrial flutter at the rate of 145. The risk was at 14.4 with a hemoglobin 10.6 and a platelet count of 326. Sodium levels of 139, BUN is at 31 with a creatinine of 0.8. He was restarted back on his anticoagulation and he is currently on Eliquis 5 mg by mouth twice a day. He is on DuoNeb neb treatments and also on IV Solu-Medrol. IV fluids are running at 75 mL an hour. Noted the patient is also on metoprolol 75 mg by mouth twice a day. He was taken multaq on an outpatient basis. Cardiology has been consulted. He remains on IV Unasyn as an empiric antibiotic coverage. A repeat chest x-ray was done today. It shows a stable right-sided pleural effusion. Chronic right apical scarring and chronic interstitial infiltrates bilaterally are again seen. The patient is quite tachypneic breathing in the mid 30s. FiO2 has been weaned down to 50% and his pulse ox remained above 90%. On today's evaluation of 02/05/2023, the patient is doing well. He is off the BiPAP. He is currently on oxygen at 6 L nasal cannula. Cardiac rhythm is sinus. Awake and alert and communicating. Having bowel movements. No other significant events overnight. Blood work from today shows a dilute count 10.7, hemoglobin is 9.9 and platelet count of 254,. Sodium level CXLI, BUN is at 33 with a creatinine of 0.7 and a potassium level of 4.8. Blood cultures are negative. The chest x-ray shows a stable right-sided pleural effusion. This is located in the right lung base. No other significant abnormalities or changes since yesterday. No altered mentation. Objective - Vital Signs Vital signs: Vital Signs Temp 97.5 F L 02/06/23 08:00 Pulse 69 02/06/23 09:00 Resp 32 H 02/06/23 09:00 BP 108/81 02/06/23 09:00 Pulse Ox 97 02/06/23 09:00 FiO2 50 02/06/23 07:30 Intake & Output 02/05/23 02/06/23 02/06/23 18:59 06:59 18:59 Intake Total 1568.023 680 90 Output Total 304 415 Balance 1264.023 265 90 Weight 67.8 kg Intake: IV 1230 680 40 Ampicillin-Sulbactam 3 gm 400 200 In Sodium Chloride 0.9% 100 ml @ 200 mls/hr IVPB Q6H [facility] Rx#:[id number] Sodium Chloride 0.9% 1, 480 40 000 ml @ 40 mls/hr IV . Q24H [facility] Rx#:[id number] Sodium Chloride 0.9% 1, 830 000 ml @ 75 mls/hr IV . [id number] [facility] Rx#:[id number] Intake, IV Titration 98.023 Amount Norepinephrine 4 mg In 98.023 Sodium Chloride 0.9% 250 ml @ 0.03 MCG/KG/MIN 8. 295 mls/hr IV .Q24H [facility] Rx#:[id number] Oral 240 50 Output: Urine 304 415 Other: Voiding Method Indwelling Catheter Indwelling Catheter ABP, PAP, CO, CI - Last Documented Arterial Blood Pressure 89/41 - Exam Gen. appearance, the patient is a mild degree of respiratory distress. He is using some accessory muscles of breathing. Patient is currently on 6 L of O2 nasal cannula . There was no scleral icterus or corneal arcus. Mucous membranes were moist. Neck was supple and without jugular venous distension, thyromegaly, or carotid bruits. Carotids were easily palpable bilaterally. There was no adenopathy. The patient has dental extraction and signs of postsurgical intervention on his gums both in the upper and lower jaw. No active bleeding at this point in time. Lungs sounds are markedly diminished bilaterally. There is diffuse expiratory wheezes throughout the lung [place]. Crackles in the mid and lower lung field bilaterally. Air entry is diminished in the right compared to the left. Cardiac exam revealed the PMI to be normally situated and sized. The rhythm was regular and no extrasystoles were noted during several minutes of auscultation. The first and second heart sounds were normal and physiologic splitting of the second heart sound was noted. There were no murmurs, rubs, clicks, or gallops. Abdominal exam revealed normal bowel sounds. The abdomen was soft, non-tender, and without masses, organomegaly, or appreciable enlargement of the abdominal aorta. Examination of the extremities revealed easily palpable radial, femoral and pedal pulses. There was no cyanosis, clubbing or edema. Examination of the skin revealed no evidence of significant rashes, suspicious appearing nevi or other concerning lesions. Neurologically the patient is awake and alert. - Labs CBC & Chem 7: 02/06/23 04:15 02/06/23 04:15 Labs: Abnormal Lab Results - Last 24 Hours (Table) 02/06/23 02/06/23 Range/Units 04:15 04:15 WBC 10.7 H (3.8-10.6) k/uL RBC 3.61 L (4.30-5.90) m/uL Hgb 9.9 L (13.0-17.5) gm/dL Hct 33.1 L (39.0-53.0) % MCHC 29.8 L (31.0-37.0) g/dL Neutrophils # 9.2 H (1.3-7.7) k/uL Carbon Dioxide 39 H (22-30) mmol/L BUN 33 H (9-20) mg/dL Glucose 134 H (74-99) mg/dL Microbiology - Last 24 Hours (Table) 02/04/23 18:10 Blood Culture - Preliminary Blood 02/04/23 17:40 Blood Culture - Preliminary Blood Assessment and Plan Plan: Acute on chronic hypoxic/hypercapnic respiratory failure, likely due to COPD exacerbation. Underlying aspiration pneumonia/pulmonary edema/interstitial edema cannot be completely ruled out. The patient is improved and the patient is currently on 6 L of O2 nasal cannula Altered mental status secondary to CO2 narcosis due to acute on top of chronic hypercapnic respiratory failure, recovered and the patient is currently awake and alert. A flutter with rapid ventricular response, recovered. Cardioversion Hypotension, pressor dependent probably related to A. flutter, RVR, improved post-cardioversion and the patient is currently on no pressors Advanced oxygen-dependent COPD and steroid dependent COPD, maintain oxygen at 5 L at baseline, maintained on oral prednisone at baseline. The patient also has a AVAPS machine at home, encouraged ventilator which is set at a time. Tidal volume of 350 mL. 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 fib, current rhythm is sinus and the patient has limited on a combination of multiaq, metoprolol and anticoagulation with Eliquis Previous history of hospital-acquired pneumonia requiring intubation mechanical ventilation Previous history of ARDS requiring intubation mechanical ventilation Previous hospitalization for A. fib RVR, back in July 2022. Recent dental extraction done locally in a dental office. The son is a ma xillofacial surgeon and he was the one who was performing the procedure Hypertension BPH Hypothyroidism Plan The patient will be taken home today. His son has oxygen tanks which she is going to bring. He also has a ventilator and see me also drank and using as needed on Route. He is feeling extremely comfortable taking his father home. we'll keep him on oxygen 6 L/m nasal cannula Discontinue the IV Unasyn and start the patient on the course of Augmentin Discontinue the IV Solu-Medrol and start the patient a prednisone burst taper Continue Synthroid home cardiac medications respiratory medications or been resumed and the patient is to be discharged today.
[2023-02-06 12:34] VITALS: BP 104/64; PULSE 66; RESP 48
[2023-02-06] MEDS ORDERED: AMOXIC-POT CLAV 875-125MG 1 EACH TAB PO SCH (21:00)
--- NOTE | 2023-02-16 10:35 | P.DS ---
Providers Date of admission: 02/04/23 14:36 Attending physician: Darren Gross MD Consults: 02/04/23 14:37 Consult Physician Stat Consulting Provider: Mady Brito Consult Reason/Comments: Respiratory failure Do you want consulting provider notified?: Already Contacted 02/06/23 08:36 Consult Physician Routine Consulting Provider: Eloy Castillo Consult Reason/Comments: peristent tachycardia hx of afib Do you want consulting provider notified?: Already Contacted Primary care physician: Stated None Hospital Course: After rounds this morning on the patient, I received a call from the bedside nurse that pulmonary service has cleared the patient for discharge and patient and family including and son are eager and abdomen to be discharged home. I discussed the case with Dr. brito who confirmed the pt is cleared for discharge. Then I called the patient and I talked to the at bedside, she confirmed to me there wants to go home today and she confirms they have all the equipment and prescription the need of home. She states that her son is a doctor and will follow up with his father very closely Patient at such was cleared for discharge by pulmonary and cardiology services pt will be discharged on oral antibiotics and tapered steroids. Problems and management plan were discussed with the patient and he verbalized understanding and acceptance Patient was found stable and can be discharged home in guarded prognosis however he needs follow-up as an outpatient. Patient was instructed to follow up with PCP within one week and patient agrees please refer to previous progress note for more details Time spent more than 35 minutes Plan - Discharge Summary New Discharge Prescriptions: New Amoxic-Pot Clav 875-125Mg [Augmentin 875-125] 1 each PO Q12HR 10 Days #20 tab predniSONE 0 mg PO DIRECTED #25 tab Sennosides [Senokot] 8.6 mg PO DAILY #30 tab Omeprazole [PriLOSEC] 20 mg PO AC-BID #60 cap Albuterol Inhaler [Ventolin Hfa Inhaler] 2 puff INHALATION Q6H PRN #1 each PRN Reason: Shortness Of Breath Or Wheezing Continue Apixaban [Eliquis] 5 mg PO BID Dronedarone HCl [Multaq] 400 mg PO BID Metoprolol Succinate [Toprol XL] 75 mg PO BID Megestrol [Megace] 40 mg PO BID Furosemide [Lasix] 20 mg PO DAILY PRN PRN Reason: Edema Discharge Medication List Apixaban [Eliquis] 5 mg PO BID 02/04/23 [History] Dronedarone HCl [Multaq] 400 mg PO BID 02/04/23 [History] Furosemide [Lasix] 20 mg PO DAILY PRN 02/04/23 [History] Megestrol [Megace] 40 mg PO BID 02/04/23 [History] Metoprolol Succinate [Toprol XL] 75 mg PO BID 02/04/23 [History] Albuterol Inhaler [Ventolin Hfa Inhaler] 2 puff INHALATION Q6H PRN #1 each 02/06/23 [Rx] Amoxic-Pot Clav 875-125Mg [Augmentin 875-125] 1 each PO Q12HR 10 Days #20 tab 02/06/23 [Rx] Omeprazole [PriLOSEC] 20 mg PO AC-BID #60 cap 02/06/23 [Rx] Sennosides [Senokot] 8.6 mg PO DAILY #30 tab 02/06/23 [Rx] predniSONE 0 mg PO DIRECTED #25 tab 02/06/23 [Rx] Follow up Appointment(s)/Referral(s): None,Stated [Primary Care Provider] - 1-2 days Mady Brito MD [STAFF PHYSICIAN] - 1 Week Activity/Diet/Wound Care/Special Instructions: resume your previous diet activity is restricted till you see your doctor Discharge Disposition: HOME SELF-CARE
== END 2023-02-06 13:20 | disposition home or self-care (01) | DRG 189 ==
LOC: EDBD 12:29 → EC 12:29 → 2SICU 14:36
PROVIDERS: ADMIT Internal Medicine; ATTEND Internal Medicine
PROC: 5A09357 Assistance with Respiratory Ventilation, Less than 24 Consecutive Hours, Continuous Positive Airway Pressure (ICD-10-PCS; principal; 2023-02-04)
PROC: 5A2204Z Restoration of Cardiac Rhythm, Single (ICD-10-PCS; 2023-02-05)
PROC: 3E033XZ Introduction of Vasopressor into Peripheral Vein, Percutaneous Approach (ICD-10-PCS; 2023-02-05)
DX: J96.21 Acute and chronic respiratory failure with hypoxia (principal); G93.41 Metabolic encephalopathy; J69.0 Pneumonitis due to inhalation of food and vomit; E87.4 Mixed disorder of acid-base balance; I48.92 Unspecified atrial flutter; J44.1 Chronic obstructive pulmonary disease with (acute) exacerbation; J90 Pleural effusion, not elsewhere classified; J98.11 Atelectasis; I95.9 Hypotension, unspecified; G93.89 Other specified disorders of brain; J96.22 Acute and chronic respiratory failure with hypercapnia; I48.0 Paroxysmal atrial fibrillation; I10 Essential (primary) hypertension; N40.0 Benign prostatic hyperplasia without lower urinary tract symptoms; E03.9 Hypothyroidism, unspecified; K08.9 Disorder of teeth and supporting structures, unspecified; Z79.01 Long term (current) use of anticoagulants; Z79.52 Long term (current) use of systemic steroids; Z79.818 Long term (current) use of other agents affecting estrogen receptors and estrogen levels; Z79.899 Other long term (current) drug therapy; Z85.118 Personal history of other malignant neoplasm of bronchus and lung; Z87.891 Personal history of nicotine dependence; Z92.21 Personal history of antineoplastic chemotherapy; Z92.3 Personal history of irradiation; Z96.612 Presence of left artificial shoulder joint; Z96.611 Presence of right artificial shoulder joint; Z86.74 Personal history of sudden cardiac arrest
CPT/HCPCS: 36415; 36600; 71045; 80048; 80053; 82805; 83605; 83735; 83880; 84484; 85025; 85610; 85730; 87040; 92960; 93005; 94640; 94660; 96372; 96374; 96375; 99291